=== PATIENT | male | born 1955 | race Caucasian/White ===

== ENCOUNTER 2025-05-06 10:06 | Inpatient (IN) | payer MEDICARE ==
[~2025-05-06] VITALS: Ht 180.3 cm; Wt 94.0 kg
[2025-05-06 10:29] LABS: NUCLEATED RED BLOOD CELLS 0.0 % (0.0-0.19); PLATELET COUNT (AUTO) 229.0 K/uL (130-400); RED BLOOD CELL COUNT(AUTO) 5.0 MIL/uL (4.50-6.20); RED CELL DISTRIBUTION WIDTH 12.5 % (11.0-15.5); WHITE BLOOD COUNT (AUTO) 8.8 K/uL (4.8-10.8)
--- NOTE | 2025-05-06 10:34 | NUR ---
PATIENT IN ROOM
[2025-05-06 10:36] LABS: CREATININE 1.1 mg/dL (0.5-1.3); GLOMERULAR FILTR. RATE CALC 72.0 mL/min (>90); GLUCOSE,RANDOM 179.0 mg/dL (70-105); SODIUM SERUM 139.0 mmol/L (136-145); UREA NITROGEN, BLOOD 15.0 mg/dL (7-18)
[2025-05-06] MEDS: 0.9%NACL 1000ML 1,000 ML IV SCH ×2 (10:40→13:28)
--- NOTE | 2025-05-06 10:43 | NUR ---
PER PATIENT'S REQUEST WOULD LIKE TO HOLD OFF THE PAIN MEDICATION AND THE ZOFRAN UINTIL NEED. PT IS VERBALIZING A PAIN 2/10.
--- NOTE | 2025-05-06 12:04 | HMCIMG ---
EXAM: CT Abdomen and Pelvis Without IV contrast. CLINICAL HISTORY: Left flank pain with hematuria. TECHNIQUE: Axial computed tomography images of the abdomen and pelvis without intravenous contrast. CONTRAST: No IV contrast. COMPARISON: None provided. FINDINGS: LUNG BASES: No pleural effusions. Right hemidiaphragm elevated. Mild subsegmental atelectatic bands in the basal segment of the right lower lobe. LIVER: Unremarkable. GALLBLADDER AND BILE DUCTS: The gallbladder appears within normal limits. No radiopaque gallstones. No biliary ductal dilatation. PANCREAS: Unremarkable. SPLEEN: Unremarkable. ADRENAL GLANDS: Unremarkable. KIDNEYS, URETERS, AND BLADDER: No urinary calculi. Hypodense exophytic cyst-like lesion measuring 1.8 1.2 cm in the upper pole of the right kidney. Ultrasound correlation recommended for better evaluation. Lobulated heterogeneous ill-defined soft tissue mass in the mid and lower pole of the left kidney in the anterior aspect reaching up to the hilum, measuring 9.3 5.6 7.4 cm. Internal hyperdense areas within the lesion. Lesion predominantly exophytic. No internal calcification. Mild left hydronephrosis. STOMACH AND BOWEL: Unremarkable appearance of the stomach and bowel. No bowel obstruction. No findings suggesting enteritis or colitis. APPENDIX: No evidence of acute appendicitis on CT examination. PERITONEUM: No free fluid. No free air. LYMPH NODES: No lymphadenopathy evident. REPRODUCTIVE: Mild prostatic hypertrophy, correlate clinically with laboratory parameters. VASCULATURE: No abdominal aortic aneurysm. Atherosclerotic calcification in the aorta and its branches. BONES: No aggressive appearing osseous lesion. No acute osseous pathology evident. IMPRESSION: Large heterogeneous lobulated soft tissue mass in the mid and lower pole of the left kidney measuring 9.3 5.6 7.4 cm, predominantly exophytic, with mild left hydronephrosis. Findings concerning for renal neoplasm. Further evaluation with contrast-enhanced CT / MRI is suggested. Hypodense exophytic cyst-like lesion in the upper pole of the right kidney. Ultrasound recommended for further evaluation. /[place]
--- NOTE | 2025-05-06 12:23 | ERN ---
General Chief Complaint: Flank Pain Stated Complaint: LT FLANK PAIN AND BLOOD IN URINE Time Seen by MD: 10:09 Source: patient History of Present Illness Initial Comments My patient, 69-year-old male, with past medical history of hypertension and hypertriglyceridemia, presents to the emergency department with complaint of left flank pain. He states that pain started early in the morning and it was followed by gross hematuria with passage of blood clots few hours later. He describes feeling nauseous since morning but denies any episode of vomiting. He denies dysuria, urinary frequency or passage of stone. Timing/Duration: 4-6 hours Severity: moderate Allergies: Coded Allergies: No Known Allergies (Unverified Allergy, Unknown, 05/06/25) Past Medical History Past Medical History: High Cholesterol, Hypertension Past Surgical History: Other Constitutional: (-) chills, (-) diaphoresis, (-) fever, (-) malaise, (-) weakness, (-) other documentation EENTM: (-) eye pain, (-) blurred vision, (-) tearing, (-) double vision, (-) ear pain, (-) ear discharge, (-) nose pain, (-) nose congestion, (-) throat pain, (-) Throat swelling, (-) mouth pain, (-) tooth pain, (-) mouth swelling, (-) other documentation Respiratory: (-) cough, (-) orthopnea, (-) short of breath, (-) stridor, (-) wheezing, (-) other documentation Cardiovascular: (-) chest pain, (-) edema, (-) palpitations, (-) syncope, (-) dyspnea on exertion, (-) other documentation Gastrointestinal/Abdominal: (+) nausea Genitourinary: (+) hematuria; (-) penile discharge, (-) dysuria, (-) frequency, (-) pain, (-) other documentation Musculoskeletal: (+) Flank Pain Skin: (-) laceration, (-) contusion, (-) abrasion, (-) abscess, (-) rash, (-) change in color, (-) change in hair, (-) change in nails, (-) diaphoresis, (-) dryness, (-) other documentation Neuro: (-) altered mental status, (-) headache, (-) syncope, (-) paralysis, (-) numbness, (-) seizure, (-) pre-existing deficit, (-) tremors, (-) weakness, (-) dizziness, (-) slurred speech, (-) vertigo, (-) other documentation Psych: (-) depression, (-) suicidal ideation, (-) anxiety, (-) emotional problems, (-) auditory hallucinations, (-) visual hallucinations Physical Exam General Appearance: (+) mild distress Orientation: (+) alert, (+) oriented x 3 Head/Face Trauma: No Eye: bilateral eye normal inspection Ear, Nose, Throat: (+) hearing grossly normal, (+) normal ENT inspection, (+) moist mucous membraine Neck: (+) normal inspection, (+) supple, (+) full range of motion Respiratory: (+) chest non-tender, (+) lungs clear, (+) well ventilated Heart: (+) regular, (+) no gallop Vascular: (+) no edema Gastrointestinal: (+) soft, (+) CVA tenderness Back: (+) normal inspection, (+) no vertebral tenderness, (+) CVA tenderness (L) Extremities: (+) normal range of motion, (+) non-tender, (+) normal inspection Neurologic/Psychiatric: (+) normal speech, (+) no motor defecits, (+) no sensory deficits, (+) general duty nurse II-XII nml as tested, (+) normal gait, (+) normal mood/affect Skin: (+) normal color Results Laboratory and Microbiology Lab and Micro Result Laboratory Tests Test 05/06/25 10:24 White Blood Count 8.8 K/uL (4.8-10.8) Red Blood Count 5.00 MIL/uL (4.50-6.20) Hemoglobin 15.2 g/dL (14.0-18.0) Hematocrit 43.3 % (42-54) Mean Corpuscular Volume 86.6 fL (79-99) Mean Corpuscular Hemoglobin 30.4 pg (27.0-33.0) Mean Corpuscular Hemoglobin Concent 35.1 g/dL (32.0-36.0) Red Cell Distribution Width 12.5 % (11.0-15.5) Platelet Count 229 K/uL (130-400) Mean Platelet Volume 9.8 fL (7.5-10.5) Nucleated Red Blood Cells 0.0 % (0.0-0.19) Sodium Level 139 mmol/L (136-145) Potassium Level 3.9 mmol/L (3.5-5.1) Chloride Level 102 mmol/L (101-111) Carbon Dioxide Level 26 mmol/L (21-32) Blood Urea Nitrogen 15 mg/dL (7-18) Creatinine 1.1 mg/dL (0.5-1.3) Glomerular Filtration Rate Calc 72 mL/min (>90) Random Glucose 179 mg/dL (70-105) H Total Calcium 9.0 mg/dL (8.5-10.1) Lipase 23 U/L (16-77) Labs Reviewed?: Yes EKG/XRAY/US/CT/MRI CT Scan Comment PATIENT: ZANDRA DE SANTIAGO MR#: [id number] : 1955 SEX: M AGE: 69 LOCATION: [facility] ORDER 101 STATUS: REG REPORT#: [id number] SERVICE 101 REASON: Left flank pain with hematuria ORDERING PHYSICIAN: ANICETO WALDROP MD PROCEDURE: ABD PEL WO - CT ABDOMEN/PELVIS W/O CONTRAST EXAM: CT Abdomen and Pelvis Without IV contrast. CLINICAL HISTORY: Left flank pain with hematuria. TECHNIQUE: Axial computed tomography images of the abdomen and pelvis without intravenous contrast. CONTRAST: No IV contrast. COMPARISON: None provided. FINDINGS: LUNG BASES: No pleural effusions. Right hemidiaphragm elevated. Mild subsegmental atelectatic bands in the basal segment of the right lower lobe. LIVER: Unremarkable. GALLBLADDER AND BILE DUCTS: The gallbladder appears within normal limits. No radiopaque gallstones. No biliary ductal dilatation. PANCREAS: Unremarkable. SPLEEN: Unremarkable. ADRENAL GLANDS: Unremarkable. KIDNEYS, URETERS, AND BLADDER: No urinary calculi. Hypodense exophytic cyst-like lesion measuring 1.8 1.2 cm in the upper pole of the right kidney. Ultrasound correlation recommended for better evaluation. Lobulated heterogeneous ill-defined soft tissue mass in the mid and lower pole of the left kidney in the anterior aspect reaching up to the hilum, measuring 9.3 5.6 7.4 cm. Internal hyperdense areas within the lesion. Lesion predominantly exophytic. No internal calcification. Mild left hydronephrosis. STOMACH AND BOWEL: Unremarkable appearance of the stomach and bowel. No bowel obstruction. No findings suggesting enteritis or colitis. APPENDIX: No evidence of acute appendicitis on CT examination. PERITONEUM: No free fluid. No free air. LYMPH NODES: No lymphadenopathy evident. REPRODUCTIVE: Mild prostatic hypertrophy, correlate clinically with laboratory parameters. VASCULATURE: No abdominal aortic aneurysm. Atherosclerotic calcification in the aorta and its branches. BONES: No aggressive appearing osseous lesion. No acute osseous pathology evident. IMPRESSION: Large heterogeneous lobulated soft tissue mass in the mid and lower pole of the left kidney measuring 9.3 5.6 7.4 cm, predominantly exophytic, with mild left hydronephrosis. Findings concerning for renal neoplasm. Further evaluation with contrast-enhanced CT / MRI is suggested. Hypodense exophytic cyst-like lesion in the upper pole of the right kidney. Ultrasound recommended for further evaluation. /[place] DICTATED BY: ORION WEISS Jr., MD DATE: 05/06/25 1302 ELECTRONICALLY SIGNED BY: ORION WEISS Jr., MD DATE: 05/06/[address] [facility] MDM: Differential diagnosis: Left flank pain concerning for left renal neoplasm, gross hematuria My patient, 69-year-old male, presented with complain of left flank pain associated with hematuria. * CBC, BMP, lipase levels were done. * UA profile with microscopy was done. * IV fluid bolus, ondansetron and Toradol were ordered for fluid repletion, nausea and pain relief. * CT scan of abdomen and pelvis without contrast was ordered. It showed: Large heterogeneous lobulated soft tissue mass in the mid and lower pole of the left kidney measuring 9.3 5.6 7.4 cm, predominantly exophytic, with mild left hydronephrosis. Findings concerning for renal neoplasm. Further evaluation with contrast-enhanced CT / MRI is suggested. Hypodense exophytic cyst-like lesion in the upper pole of the right kidney. Ultrasound recommended for further evaluation. * Patient is being admitted under hospitalist for further evaluation. ED Course Orders Procedure Category Date Status Time Cbc Without LAB 05/06/25 Complete Differential 10:15 Basic Metabolic Panel LAB 05/06/25 Complete 10:15 Lipase LAB 05/06/25 Complete 10:15 Ct Abdomen/Pelvis W/O CT 05/06/25 Resulted Contrast 10:15 0.9%Nacl 1000ml (Ns PHA 05/06/25 In Process 1000ml) 10:30 Ketorolac PHA 05/06/25 Complete Tromethamine 15mg/Ml 10:30 Ondansetron 4mg Inj PHA 05/06/25 Complete (Zofran 4mg Inj) 10:30 Urinalysis LAB 05/06/25 Logged W/Microscopic 10:20 Current Medications Medications (Trade) Dose Ordered Sig/Richard Route PRN Reason Start Time Stop Time Status Last Admin Dose Admin Ketorolac Tromethamine (toRADol) 15 mg ONCE ONCE IV 05/06/25 10:30 05/06/25 10:31 DC Ondansetron HCl (zoFRAN 4MG INJ) 4 mg ONCE ONCE IVP 05/06/25 10:30 05/06/25 10:31 DC Sodium Chloride 1,000 ml @ 0 mls/hr Q0M IV 05/06/25 10:30 06/05/25 10:29 05/06/25 10:40 Vital Signs Date Time Temp Pulse Resp B/P (MAP) Pulse Ox O2 Delivery O2 Flow Rate FiO2 05/06/25 11:44 97.9 64 11 136/75 97 Room Air* 0 05/06/25 10:34 97.9 67 20 131/72 99 Room Air* 0 05/06/25 10:09 97.9 67 20 131/72 99 Room Air 0 DX & DISP Disposition: Inpatient Decision to Admit Date: May 06, 2025 Decision to Admit Time: 12:23 Departure Impression: Primary Impression: Left flank mass Additional Impressions: Left flank pain, Gross hematuria, Nausea Condition: Stable Referrals: AGNES COTO MD (PCP) ANICETO WALDROP MD May 06, 2025 12:23 AMY HERNANDEZ MD May 06, 2025 12:26
--- NOTE | 2025-05-06 12:43 | NUR ---
ONCOLOGY CONSULT DR JULIAN SALEH, RESIDENT FOR DR JUNIOR, AT THE BEDSIDE
[2025-05-06 13:07] LABS: ASPARTATE AMINOTRANSFERASE 31 U/L (10-37); TOTAL PROTEIN, SERUM 7.6 g/dL (6.0-8.3)
[2025-05-06 13:12] LABS: INR 1.03 (0.85-1.15)
[2025-05-06] MEDS ORDERED: IOHEXOL-350 75 ML VIAL IV ONE (13:35)
--- NOTE | 2025-05-06 14:29 | NUR ---
REPORT GIVEN TO NURSE DEXTER
--- NOTE | 2025-05-06 15:40 | HMCIMG ---
STUDY CT Abdomen and Pelvis with and without intravenous contrast. HISTORY Hematuria and known left renal mass. TECHNIQUE Axial computed tomography images of the abdomen and pelvis were obtained before and after intravenous contrast administration. CONTRAST With and without intravenous contrast. COMPARISON CT Abdomen/Pelvis without contrast 05/06/2025 10:59 EST. FINDINGS LUNG BASES The lung bases are clear. No pleural effusions are seen. LIVER The liver demonstrates decreased attenuation consistent with hepatic steatosis. No focal enhancing hepatic lesion is identified. GALLBLADDER AND BILE DUCTS The gallbladder appears within normal limits. No radiopaque gallstones are seen. No biliary ductal dilatation is evident. PANCREAS The pancreas is normal in size and enhancement without peripancreatic inflammatory change. SPLEEN Unremarkable. ADRENAL GLANDS Unremarkable. KIDNEYS, URETERS, AND BLADDER Right kidney: A 1.2 cm exophytic cortical cyst is present at the right upper pole, without suspicious enhancement, compatible with a simple cortical cyst. No hydronephrosis, hydroureter, or calculus is seen. Left kidney: A large solidcystic mass arises from the mid and lower pole cortex of the left kidney, measuring approximately 9.9 7.7 6.7 cm, predominantly exophytic. The lesion demonstrates heterogeneous enhancement of the solid components with a nonenhancing central necrotic/cystic area. The collecting system is displaced but not infiltrated. The left renal vein is patent without filling defect, and there is no inferior vena cava thrombus. The anterior renal (Gerota) fascia and perinephric fat show no definite invasion. Mild left hydronephrosis previously described is not progressive. The urinary bladder is unremarkable. STOMACH AND BOWEL The stomach and small bowel appear unremarkable. Diffuse uncomplicated colonic diverticulosis is present without evidence of acute diverticulitis or bowel obstruction. The appendix is normal in caliber without surrounding inflammatory change. PERITONEUM No free fluid or free intraperitoneal air is evident. LYMPH NODES No pathologic abdominal or pelvic lymphadenopathy is identified. REPRODUCTIVE The prostate is enlarged, with an estimated volume of approximately 44 cc. VASCULATURE No abdominal aortic aneurysm. There is severe calcific atherosclerosis of the abdominal aorta and its major branches. Postsurgical change is present involving the left iliac vessels, without definite CT evidence of venous stent or graft. BONES AND SOFT TISSUES No acute or aggressive osseous lesion is seen. The right hemidiaphragm is elevated. No suspicious soft tissue mass is otherwise identified. IMPRESSION * Large heterogeneous predominantly exophytic solidcystic mass arising from the mid and lower pole cortex of the left kidney (?9.9 cm), with enhancing solid components and central necrosis, displacing but not invading the collecting system, with patent left renal vein and no IVC thrombus or perinephric/Gerota fascia invasion; appearance most consistent with renal cell carcinoma, at least clinical stage T2a N0 M0 on current CT, not significantly changed in extent compared with noncontrast CT of 05/06/2025. * Simple right upper pole renal cortical cyst (?1.2 cm) and benign-appearing cystic components associated with the left renal lesion, without a separate suspicious right renal mass. * Hepatic steatosis, colonic diverticulosis without diverticulitis, prostatomegaly, and severe abdominal aortic and branch-vessel atherosclerosis with postsurgical change of the left iliac vessels, without acute intra-abdominal or pelvic complication. /[place]
[2025-05-06 16:00] VITALS: BP 140/78; PULSE 63; RESP 18; TEMP 98.3; O2SAT 100
--- NOTE | 2025-05-06 18:01 | CONS ---
JULIAN SALEH Taylor 05/06/25 1801: CONSULT REFERRING PHYSICIAN: Balaji REASON FOR CONSULT: Renal mass and hematuria HISTORY HPI: This is a 69-year-old male with underlying history of hypertension maintained on outpatient treatment with valsartan, gemfibrozil, who presented to the ER for further evaluation of left-sided flank pain with episode of hematuria that started close to 1:00 a.m., patient reports that the pain woke him up and it was moderate in intensity. Patient reports passing blood clot in the urine with hematuria. The episode happened again close to 7:00 a.m. and patient reports feeling mild nausea with the symptoms. Given nonresolving symptoms, patient presented to the ER for further evaluation. Patient denies any weight loss. Denies any previous renal abnormalities. Patient does report that in his 20s, he needed IVP for renal evaluation, denies any history of renal stone or being told he had renal abnormalities. Patient denies any fevers or chills. Does report having history of hypertension and has been maintained on outpatient treatment valsartan as well as a history of hypertriglyceridemia maintained on outpatient treatment with gemfibrozil. Patient denies any history of significant smoking or exposure to heavy industrial chemicals. PMH: PAST MEDICAL HISTORY: Hypertension, hypertriglyceridemia PSH: PAST SURGICAL HISTORY: Denies history of major surgeries previously SH: PAST SOCIAL HISTORY: Denies active smoking or alcohol consumption FH: FAMILY HISTORY: Denies family history of cancer ALLERGIES: Coded Allergies: No Known Allergies (Unverified Allergy, Unknown, 05/06/25) CURRENT MEDS: Current Medications Medications (Trade) Dose Ordered Sig/Richard Route PRN Reason Start Time Stop Time Status Last Admin Sodium Chloride 1,000 ml @ 0 mls/hr Q0M IV 05/06/25 10:30 06/05/25 10:29 05/06/25 10:40 Sodium Chloride 1,000 ml @ 75 mls/hr [id number] IV 05/06/25 13:00 06/05/25 12:59 05/06/25 13:28 Famotidine (Pepcid 20mg Tab) 20 mg BID PO 05/06/25 21:00 06/05/25 20:59 Morphine Sulfate (morPHINE 2MG SYG) 2 mg Q6H PRN IVP SEVERE PAIN (7-10) 05/06/25 13:00 05/13/25 12:59 Acetaminophen (TYLenol 325MG TAB) 650 mg Q6H PRN PO MILD PAIN (1-3) 05/06/25 13:00 06/05/25 12:59 Ondansetron HCl (zoFRAN 4MG INJ) 4 mg Q6H PRN IVP NAUSEA/VOMITING 05/06/25 13:00 06/05/25 12:59 Vitamin B Complex/ Vit C/Folic Acid (Nephrovite Tablet) 1 cap DAILY PO 05/07/25 09:00 06/06/25 08:59 Gemfibrozil (gemFIBROzil 600 MG TABLET) 600 mg DAILY PO 05/07/25 09:00 06/06/25 08:59 Losartan Potassium (CozAAR 100MG TAB) 100 mg DAILYDINNER PO 05/06/25 17:00 06/05/25 16:59 Hydralazine HCl (APRESOLine 20MG INJ) 5 mg Q6H PRN IV ADMINISTER FOR SBP > 160 05/06/25 15:30 06/05/25 15:29 REVIEW OF SYSTEMS CONSTITUTIONAL: FEVER; No FEVER; SWEATS; No SWEATS; CHILLS; No CHILLS, No WEIGHT LOSS HEENT: JAUNDICE; No JAUNDICE; SORE THROAT; No SORE THROAT; SINUS PRESSURE; No SINUS PRESSURE, No VISION CHANGES RESPIRATORY: COUGH; No COUGH; CHEST PAIN; No CHEST PAIN, No SHORTNESS OF BREATH, No HEMOPTYSIS CARDIOVASCULAR: PALPATIONS; No PALPATIONS, No DYSPNEA ON EXERTION, No SYNCOPE GENITOURINARY: HEMATURIA HEMATOLOGIC/LYMPHATIC: No EASY BRUISING, No CERVICAL ADENOPATHY, No AXILLARY ADENOPATHY, No INGUINAL ADENOPATHY MUSCULOSKELETAL: BONE PAIN; No BONE PAIN, No MASS; NORMAL RANGE OF MOTION; No N ORMAL RANGE OF MOTION SKIN/BREASTS: BREAST MASS; No BREAST MASS, No NIPPLE INVERSION, No RASH NEUROLOGICAL: No WEAKNESS-EXTREMETIES, No DIPLOPIA, No NUMBNESS, No TINGLING PSYCHOLOGICAL: No SUICIDAL IDEATION PHYSICAL EXAM VITALS: Vital Signs Date Time Temp Pulse Resp B/P (MAP) Pulse Ox O2 Delivery O2 Flow Rate FiO2 05/06/25 16:00 98.2 63 18 140/78 100 Room Air 05/06/25 14:14 0 21 GENERAL: ALERT, ORIENTED, APPEARS-NO ACUTE DISTRESS EYES: SCLERAE ANICTERIC, PUPILS EQUAL/REACTIVE, EXTRAOCULAR MUSCLES INTCT ENT/NECK: ORAL MUCOSA W/O LESIONS, OROPHARYNX IS CLEAR, NECK SUPPLE W/O MASSES RESPIRATORY: LUNGS CLEAR-AUSC/PERCUS CARDIOVASCULAR: REGULAR RATE GASTROINTESTINAL: ABDOMEN IS SOFT HEMATOLOGY/LYMPHATIC: No CERVICAL ADENOPATHY, No SUPRACLAVICULR ADENOPATHY, No AXILLARY ADENOPATHY, No INGUINAL ADENOPATHY MUSCULOSKELETAL: CYANOSIS-EXTREMETIES; No CYANOSIS-EXTREMETIES, No CLUBBING, No EDEMA SKIN/BREASTS: MASSES; No MASSES, No RASH, No HIVES NEUROLOGICAL: GROSSLY INTACT PSYCHOLOGICAL: MINI MENTAL ASSMT INTACT DIAGNOSTIC STUDIES [facility] [address] [place], [place] [id number] IMAGING REPORT Signed PATIENT: ZANDRA DE SANTIAGO MR#: [id number] : 1955 SEX: M AGE: 69 LOCATION: [facility] ORDER 1302 STATUS: ADM IN REPORT#: [id number] SERVICE 1300 REASON: HEMATURIA AND LEFT RENAL MASS ORDERING PHYSICIAN: MARY CRUMP MD PROCEDURE: ABD PELWWO - CT ABDOMEN/PELVIS W/WO CONTRAS STUDY CT Abdomen and Pelvis with and without intravenous contrast. HISTORY Hematuria and known left renal mass. TECHNIQUE Axial computed tomography images of the abdomen and pelvis were obtained before and after intravenous contrast administration. CONTRAST With and without intravenous contrast. COMPARISON CT Abdomen/Pelvis without contrast 05/06/2025 10:59 EST. FINDINGS LUNG BASES The lung bases are clear. No pleural effusions are seen. LIVER The liver demonstrates decreased attenuation consistent with hepatic steatosis. No focal enhancing hepatic lesion is identified. GALLBLADDER AND BILE DUCTS The gallbladder appears within normal limits. No radiopaque gallstones are seen. No biliary ductal dilatation is evident. PANCREAS The pancreas is normal in size and enhancement without peripancreatic inflammatory change. SPLEEN Unremarkable. ADRENAL GLANDS Unremarkable. KIDNEYS, URETERS, AND BLADDER Right kidney: A 1.2 cm exophytic cortical cyst is present at the right upper pole, without suspicious enhancement, compatible with a simple cortical cyst. No hydronephrosis, hydroureter, or calculus is seen. Left kidney: A large solidcystic mass arises from the mid and lower pole cortex of the left kidney, measuring approximately 9.9 7.7 6.7 cm, predominantly exophytic. The lesion demonstrates heterogeneous enhancement of the solid components with a nonenhancing central necrotic/cystic area. The collecting system is displaced but not infiltrated. The left renal vein is patent without filling defect, and there is no inferior vena cava thrombus. The anterior renal (Gerota) fascia and perinephric fat show no definite invasion. Mild left hydronephrosis previously described is not progressive. The urinary bladder is unremarkable. STOMACH AND BOWEL The stomach and small bowel appear unremarkable. Diffuse uncomplicated colonic diverticulosis is present without evidence of acute diverticulitis or bowel obstruction. The appendix is normal in caliber without surrounding inflammatory change. PERITONEUM No free fluid or free intraperitoneal air is evident. LYMPH NODES No pathologic abdominal or pelvic lymphadenopathy is identified. REPRODUCTIVE The prostate is enlarged, with an estimated volume of approximately 44 cc. VASCULATURE No abdominal aortic aneurysm. There is severe calcific atherosclerosis of the abdominal aorta and its major branches. Postsurgical change is present involving the left iliac vessels, without definite CT evidence of venous stent or graft. BONES AND SOFT TISSUES No acute or aggressive osseous lesion is seen. The right hemidiaphragm is elevated. No suspicious soft tissue mass is otherwise identified. IMPRESSION * Large heterogeneous predominantly exophytic solidcystic mass arising from the mid and lower pole cortex of the left kidney (?9.9 cm), with enhancing solid components and central necrosis, displacing but not invading the collecting system, with patent left renal vein and no IVC thrombus or perinephric/Gerota fascia invasion; appearance most consistent with renal cell carcinoma, at least clinical stage T2a N0 M0 on current CT, not significantly changed in extent compared with noncontrast CT of 05/06/2025. * Simple right upper pole renal cortical cyst (?1.2 cm) and benign-appearing cystic components associated with the left renal lesion, without a separate suspicious right renal mass. * Hepatic steatosis, colonic diverticulosis without diverticulitis, prostatomegaly, and severe abdominal aortic and branch-vessel atherosclerosis with postsurgical change of the left iliac vessels, without acute intra-abdominal or pelvic complication. /[place] DICTATED BY: BRANDON SUNG MD DATE: 05/06/251638 ELECTRONICALLY SIGNED BY: BRANDON SUNG MD DATE: 05/06/251638 IMPRESSION ASSESSMENT: Largest heterogenous 9.9 cm left renal mass concerning for renal cell carcinoma, POA Left-sided flank pain with intermittent hematuria, times Friday, POA History of hypertension, POA History of hypertriglyceridemia, POA PLAN PLAN: Follow labs in the AM Follow up results of CT abdomen pelvis with IV contrast, Follow recommendations per Urology KETTY JUNIOR MD 05/07/25 0758: PLAN I attest that I was physically present to evaluate the patient and I reviewed and discussed the case with the Resident and agree with the Resident's findings and plans of care as documented above with modifications. Case discussed with resident on the date stated at the beginning of note. Patient was first seen and evaluated by me during this hospitalization. JULIAN SALEH May 06, 2025 18:01 KETTY JUNIOR MD May 07, 2025 07:58
[2025-05-06 18:30] VITALS: BP 154/88; PULSE 61; RESP 18; TEMP 98.5
--- NOTE | 2025-05-06 18:46 | HP ---
[facility] HISTORY AND PHYSICAL Date of Service: May 06, 2025 Time of Service: 18:46 HISTORY OF PRESENT ILLNESS: Date of service: 05/06/2025, patient was seen in ER room 15 This is a 69-year-old male with underlying history of hypertension maintained on outpatient treatment with valsartan, who presented to the ER for further evaluation of left-sided flank pain with episode of hematuria that started close to 1:00 a.m., patient reports that the pain woke him up and it was moderate in intensity. Patient reports passing blood clot in the urine with hematuria. The episode happened again close to 7:00 a.m. and patient reports feeling mild nausea with the symptoms. Given nonresolving symptoms, patient presented to the ER for further evaluation. Patient denies any weight loss. Denies any previous renal abnormalities. Patient does report that in his 20s, he needed IVP for renal evaluation, denies any history of renal stone or being told he had renal abnormalities. Patient denies any fevers or chills. Does report having history of hypertension and has been maintained on outpatient treatment valsartan as well as a history of hypertriglyceridemia maintained on outpatient treatment with gemfibrozil. Patient denies any history of significant smoking or exposure to heavy industrial chemicals. On presentation to the hospital, patient was noted to be afebrile and hemodynamically stable. Labs on presentation showed WBC count of 8800, hemoglobin of 15.2, platelet count of 835610. BMP showed sodium of 139, potassium 3.9, BUN of 15, creatinine 1.1. Urinalysis pending. Patient underwent CT abdomen pelvis without contrast which showed a large heterogeneous lobulated soft tissue mass in the mid and lower pole of the left kidney measuring 9.3 cm x 5.6 cm x 7.4 cm concerning for renal neoplasm. Patient will be admitted for further evaluation of left renal mass with hematuria. He will undergo further evaluation with contrast enhanced CT abdomen pelvis for further evaluation for concerns for renal cell carcinoma. Consultation with medical Oncology and Urology will be requested this admission. Plan of care was discussed with patient at bedside. REVIEW OF SYSTEMS CONSTITUTIONAL: Denies fevers, chills, or night sweats. No unintentional weight loss reported. NEUROLOGICAL: Denies headache, amaurosis fugax, motor weakness, sensory deficit, vertigo/spinning sensation, gait abnormalities, or tremors. ENT: No hearing loss, otalgia, otorrhea, rhinitis, rhinorrhea, hoarseness, or sore throat. CARDIOVASCULAR: Denies any exertional angina, dyspnea on exertion, orthopnea, paroxysmal nocturnal dyspnea, palpitations, life-threatening arrhythmias, claudication. PULMONARY: Denies any shortness of breath, cough, phlegm/sputum, hemoptysis, pleuritic chest pain. SLEEP: Denies morning headaches, daytime somnolence or napping. Denies difficulty falling asleep, staying asleep, waking from sleep. Denies knowledge of snoring. GASTROINTESTINAL: Denies any type of dysphagia to either liquids or solids. Denies nausea, vomiting, pyrosis, early satiety, abdominal pain, diarrhea, constipation, or changes in stool consistency or caliber. Denies coffee-ground emesis, hematemesis, hematochezia, or melanotic stools. 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 HEMATOLOGIC: Denies thrombophilia/previous clots, or coagulopathy/bleeding disorders. ONCOLOGIC: Denies personal history of malignancy. DERMATOLOGIC: Denies rashes or pruritus. PSYCHIATRIC: Denies any suicidal or homicidal ideation. Denies hallucinations. PAST MEDICAL HISTORY: Hypertension, hypertriglyceridemia PAST SURGICAL HISTORY: Denies history of major surgeries previously PAST SOCIAL HISTORY: Denies active smoking or alcohol consumption FAMILY HISTORY: Denies family history of cancer Allergies: No known drug allergies Home medications: Valsartan 320 mg daily, gemfibrozil once a day Coded Allergies: No Known Allergies (Unverified Allergy, Unknown, 05/06/25) PHYSICAL EXAM GENERAL APPEARANCE: The patient is awake, alert, and oriented, in no acute cardiopulmonary distress. NEUROLOGICAL: Cranial nerves II-XII grossly intact. Motor is 5/5 in bilateral upper and lower extremities proximal to distal. No sensory deficits. HEENT: Face is symmetric. Pupils are equal and reactive. Extraocular movements are intact. NECK: Supple. No JVD. No thyromegaly. No submental, submandibular, pre- /postauricular, occipital or supraclavicular lymphadenopathy. CHEST: Normal chest expansion. No Telemetry. LUNGS: Absence of any rales, rhonchi or any wheezing. CARDIOVASCULAR: Regular. S1 and S2 normal. No appreciable rubs, murmurs or gallops. ABDOMEN: Soft, nondistended. Tenderness to palpation of the left flank with a palpable mass noted : Deferred. No Macias. EXTREMITIES: Non-edematous and not cyanotic. No clubbing. Good capillary refill. SKIN: No skin breakdown. Vital Sign (Last 24 Hours) 05/06/25 05/06/25 14:14 16:00 Temp 98.2 Pulse 63 Resp 18 B/P (MAP) 140/78 Pulse Ox 100 O2 Delivery Room Air O2 Flow Rate 0 FiO2 21 LABS: Laboratory: Test 05/06/25 14:09 05/06/25 10:24 Range/Units Hemoglobin 14.3 14.0-18.0 g/dL Hematocrit 41.0 L 42-54 % White Blood Count 8.8 4.8-10.8 K/uL Red Blood Count 5.00 4.50-6.20 MIL/uL Mean Corpuscular Volume 86.6 79-99 fL Mean Corpuscular Hemoglobin 30.4 27.0-33.0 pg Mean Corpuscular Hemoglobin Concent 35.1 32.0-36.0 g/dL Red Cell Distribution Width 12.5 11.0-15.5 % Platelet Count 229 130-400 K/uL Mean Platelet Volume 9.8 7.5-10.5 fL Nucleated Red Blood Cells 0.0 0.0-0.19 % Erythrocyte Sedimentation Rate 10 0-20 MM/HR Prothrombin Time 10.9 9.6-11.6 SEC Prothromb Time International Ratio 1.03 0.85-1.15 Activated Partial Thromboplast Time 25.4 L 26.3-35.5 SEC Sodium Level 139 136-145 mmol/L Potassium Level 3.9 3.5-5.1 mmol/L Chloride Level 102 101-111 mmol/L Carbon Dioxide Level 26 21-32 mmol/L Blood Urea Nitrogen 15 7-18 mg/dL Creatinine 1.1 0.5-1.3 mg/dL Glomerular Filtration Rate Calc 72 >90 mL/min Random Glucose 179 H 70-105 mg/dL Total Calcium 9.0 8.5-10.1 mg/dL Total Bilirubin 0.9 0.2-1.0 mg/dL Direct Bilirubin 0.2 0.0-0.3 mg/dL Aspartate Amino Transf (AST/SGOT) 31 10-37 U/L Alanine Aminotransferase (ALT/SGPT) 33 12-78 U/L Alkaline Phosphatase 101 50-136 U/L C-Reactive Protein, Quantitative < 0.50 L 0.5-3.0 mg/L Total Protein 7.6 6.0-8.3 g/dL Albumin 4.0 3.5-5.0 g/dL Lipase 23 16-77 U/L Procalcitonin < 0.05 L 0.05-0.5 ng/mL Current Medications Medications (Trade) Dose Ordered Sig/Richard Route PRN Reason Start Time Stop Time Status Last Admin Dose Admin Acetaminophen (TYLenol 325MG TAB) 650 mg Q6H PRN PO MILD PAIN (1-3) 05/06/25 13:00 06/05/25 12:59 Famotidine (Pepcid 20mg Tab) 20 mg BID PO 05/06/25 21:00 06/05/25 20:59 Gemfibrozil (gemFIBROzil 600 MG TABLET) 600 mg DAILY PO 05/07/25 09:00 06/06/25 08:59 Hydralazine HCl (APRESOLine 20MG INJ) 5 mg Q6H PRN IV ADMINISTER FOR SBP > 160 05/06/25 15:30 06/05/25 15:29 Losartan Potassium (CozAAR 100MG TAB) 100 mg DAILYDINNER PO 05/06/25 17:00 06/05/25 16:59 Morphine Sulfate (morPHINE 2MG SYG) 2 mg Q6H PRN IVP SEVERE PAIN (7-10) 05/06/25 13:00 05/13/25 12:59 Ondansetron HCl (zoFRAN 4MG INJ) 4 mg Q6H PRN IVP NAUSEA/VOMITING 05/06/25 13:00 06/05/25 12:59 Sodium Chloride 1,000 ml @ 0 mls/hr Q0M IV 05/06/25 10:30 06/05/25 10:29 05/06/25 10:40 1,000 MLS/HR Sodium Chloride 1,000 ml @ 75 mls/hr [id number] IV 05/06/25 13:00 06/05/25 12:59 05/06/25 13:28 75 MLS/HR Vitamin B Complex/ Vit C/Folic Acid (Nephrovite Tablet) 1 cap DAILY PO 05/07/25 09:00 06/06/25 08:59 DIAGNOSTICS / RADIOLOGY: SERVICE 1300 REASON: HEMATURIA AND LEFT RENAL MASS ORDERING PHYSICIAN: ADRIAN SCHAFER MD PROCEDURE: ABD PELWWO - CT ABDOMEN/PELVIS W/WO CONTRAS STUDY CT Abdomen and Pelvis with and without intravenous contrast. HISTORY Hematuria and known left renal mass. TECHNIQUE Axial computed tomography images of the abdomen and pelvis were obtained before and after intravenous contrast administration. CONTRAST With and without intravenous contrast. COMPARISON CT Abdomen/Pelvis without contrast 05/06/2025 10:59 EST. FINDINGS LUNG BASES The lung bases are clear. No pleural effusions are seen. LIVER The liver demonstrates decreased attenuation consistent with hepatic steatosis. No focal enhancing hepatic lesion is identified. GALLBLADDER AND BILE DUCTS The gallbladder appears within normal limits. No radiopaque gallstones are seen. No biliary ductal dilatation is evident. PANCREAS The pancreas is normal in size and enhancement without peripancreatic inflammatory change. SPLEEN Unremarkable. ADRENAL GLANDS Unremarkable. KIDNEYS, URETERS, AND BLADDER Right kidney: A 1.2 cm exophytic cortical cyst is present at the right upper pole, without suspicious enhancement, compatible with a simple cortical cyst. No hydronephrosis, hydroureter, or calculus is seen. Left kidney: A large solidcystic mass arises from the mid and lower pole cortex of the left kidney, measuring approximately 9.9 7.7 6.7 cm, predominantly exophytic. The lesion demonstrates heterogeneous enhancement of the solid components with a nonenhancing central necrotic/cystic area. The collecting system is displaced but not infiltrated. The left renal vein is patent without filling defect, and there is no inferior vena cava thrombus. The anterior renal (Gerota) fascia and perinephric fat show no definite invasion. Mild left hydronephrosis previously described is not progressive. The urinary bladder is unremarkable. STOMACH AND BOWEL The stomach and small bowel appear unremarkable. Diffuse uncomplicated colonic diverticulosis is present without evidence of acute diverticulitis or bowel obstruction. The appendix is normal in caliber without surrounding inflammatory change. PERITONEUM No free fluid or free intraperitoneal air is evident. LYMPH NODES No pathologic abdominal or pelvic lymphadenopathy is identified. REPRODUCTIVE The prostate is enlarged, with an estimated volume of approximately 44 cc. VASCULATURE No abdominal aortic aneurysm. There is severe calcific atherosclerosis of the abdominal aorta and its major branches. Postsurgical change is present involving the left iliac vessels, without definite CT evidence of venous stent or graft. BONES AND SOFT TISSUES No acute or aggressive osseous lesion is seen. The right hemidiaphragm is elevated. No suspicious soft tissue mass is otherwise identified. IMPRESSION * Large heterogeneous predominantly exophytic solidcystic mass arising from the mid and lower pole cortex of the left kidney (?9.9 cm), with enhancing solid components and central necrosis, displacing but not invading the collecting system, with patent left renal vein and no IVC thrombus or perinephric/Gerota fascia invasion; appearance most consistent with renal cell carcinoma, at least clinical stage T2a N0 M0 on current CT, not significantly changed in extent compared with noncontrast CT of 05/06/2025. * Simple right upper pole renal cortical cyst (?1.2 cm) and benign-appearing cystic components associated with the left renal lesion, without a separate suspicious right renal mass. * Hepatic steatosis, colonic diverticulosis without diverticulitis, prostatomegaly, and severe abdominal aortic and branch-vessel atherosclerosis with postsurgical change of the left iliac vessels, without acute intra-abdominal or pelvic complication. /[place] DICTATED BY: BRANDON SUNG MD DATE: 05/06/251638 ELECTRONICALLY SIGNED BY: BRANDON SUNG MD DATE: 05/06/251638 ASSESSMENT: Large heterogenous 9.9 cm left renal mass concerning for renal cell carcinoma, POA Left-sided flank pain with intermittent hematuria, times Friday, POA History of hypertension, POA History of hypertriglyceridemia, POA PLAN: Patient will be admitted to medical-surgical floor under telemetry monitoring We will monitor H&H closely tonight We will follow up results of CT abdomen pelvis with IV contrast, concern remains for renal cell carcinoma involving the left kidney causing hematuria Consultation with Urology will be requested with Dr. Zavala Consultation with medical oncology with Dr. Simmons be requested Patient to resume his home dose of valsartan 320 mg daily and gemfibrozil once a day All labs will be repeated in the morning We will await input from the consultants, and anticipate hospitalization for at least 24-48 hours We will keep patient on DVT prophylaxis with SCDs and GI prophylaxis with Pepcid Plan of care was discussed with patient at bedside Date of service: 05/06/2025 Adrian Schafer MD Advanced Care Planning: Which of the following were discussed: Hospice care: Yes __ No _X_ Therapeutic options: Yes _X_ No __ Advance directives: Yes _X_ No __ Other discussions: Discussed with who?: Patient Voluntary nature of this service was explained to the patient? Yes _x_ No __ Amount of time spent: 20 minutes ADRIAN SCHAFER MD May 06, 2025 18:46
[2025-05-06] MEDS: FAMOTIDINE 20MG TAB PO SCH (20:48)
[2025-05-06 22:00] VITALS: O2SAT 95
[2025-05-06 23:50] VITALS: BP 131/78; PULSE 51; RESP 20; TEMP 98.2
[2025-05-07] VITALS (7 sets, daily range): BP systolic 128–140; BP diastolic 75–90; PULSE 53–75; RESP 18; TEMP 97.8–98.7; O2SAT 96
[2025-05-07 04:18] LABS: APPEARANCE,URINE CLOUDY (CLEAR); GLUCOSE, URINE (UA) NEGATIVE (NEGATIVE); LEUKOCYTE ESTERASE ,URINE NEGATIVE Leu/uL (NEGATIVE); NITRATE,URINE NEGATIVE (NEGATIVE); OCCULT BLOOD,URINE LARGE (NEGATIVE)
[2025-05-07] MEDS ORDERED: IOHEXOL 350 MG/ML 100ML INFUS..BTL IV ONE (07:39)
--- NOTE | 2025-05-07 08:01 | PN ---
This is a 69-year-old male with underlying history of hypertension maintained on outpatient treatment with valsartan, gemfibrozil, who presented to the ER for further evaluation of left-sided flank pain with episode of hematuria that started close to 1:00 a.m., patient reports that the pain woke him up and it was moderate in intensity. Patient reports passing blood clot in the urine with hematuria. The episode happened again close to 7:00 a.m. and patient reports feeling mild nausea with the symptoms. Given nonresolving symptoms, patient presented to the ER for further evaluation. Patient denies any weight loss. Denies any previous renal abnormalities. Patient does report that in his 20s, he needed IVP for renal evaluation, denies any history of renal stone or being told he had renal abnormalities. Patient denies any fevers or chills. Does report having history of hypertension and has been maintained on outpatient treatment valsartan as well as a history of hypertriglyceridemia maintained on outpatient treatment with gemfibrozil. Patient denies any history of significant smoking or exposure to heavy industrial chemicals. CT scan of the abdomen pelvis showing left kidney mass 9.9 cm not invading the collecting system. The left renal vein patent with no thrombus. REVIEW OF SYSTEMS CONSTITUTIONAL: FEVER; No FEVER; SWEATS; No SWEATS; CHILLS; No CHILLS, No WEIGHT LOSS HEENT: JAUNDICE; No JAUNDICE; SORE THROAT; No SORE THROAT; SINUS PRESSURE; No S INUS PRESSURE, No VISION CHANGES RESPIRATORY: COUGH; No COUGH; CHEST PAIN; No CHEST PAIN, No SHORTNESS OF BREATH, No HEMOPTYSIS CARDIOVASCULAR: PALPATIONS; No PALPATIONS, No DYSPNEA ON EXERTION, No SYNCOPE GENITOURINARY: HEMATURIA HEMATOLOGIC/LYMPHATIC: No EASY BRUISING, No CERVICAL ADENOPATHY, No AXILLARY ADENOPATHY, No INGUINAL ADENOPATHY MUSCULOSKELETAL: BONE PAIN; No BONE PAIN, No MASS; NORMAL RANGE OF MOTION; No N ORMAL RANGE OF MOTION SKIN/BREASTS: BREAST MASS; No BREAST MASS, No NIPPLE INVERSION, No RASH NEUROLOGICAL: No WEAKNESS-EXTREMETIES, No DIPLOPIA, No NUMBNESS, No TINGLING PSYCHOLOGICAL: No SUICIDAL IDEATION PHYSICAL EXAM VITALS: Vital Signs Date Time Temp Pulse Resp B/P (MAP) Pulse Ox O2 Delivery O2 Flow Rate FiO2 05/06/25 16:00 98.2 63 18 140/78 100 Room Air 05/06/25 14:14 0 21 GENERAL: ALERT, ORIENTED, APPEARS-NO ACUTE DISTRESS EYES: SCLERAE ANICTERIC, PUPILS EQUAL/REACTIVE, EXTRAOCULAR MUSCLES INTCT ENT/NECK: ORAL MUCOSA W/O LESIONS, OROPHARYNX IS CLEAR, NECK SUPPLE W/O MASSES RESPIRATORY: LUNGS CLEAR-AUSC/PERCUS CARDIOVASCULAR: REGULAR RATE GASTROINTESTINAL: ABDOMEN IS SOFT HEMATOLOGY/LYMPHATIC: No CERVICAL ADENOPATHY, No SUPRACLAVICULR ADENOPATHY, No AXILLARY ADENOPATHY, No INGUINAL ADENOPATHY MUSCULOSKELETAL: CYANOSIS-EXTREMETIES; No CYANOSIS-EXTREMETIES, No CLUBBING, No EDEMA SKIN/BREASTS: MASSES; No MASSES, No RASH, No HIVES NEUROLOGICAL: GROSSLY INTACT PSYCHOLOGICAL: MINI MENTAL ASSMT INTACT IMPRESSION Largest heterogenous 9.9 cm left renal mass concerning for renal cell carcinoma, POA Left-sided flank pain with intermittent hematuria, times Friday, POA History of hypertension, POA History of hypertriglyceridemia, POA Plan 1. CT scan of the abdomen pelvis showing left kidney mass 9.9 cm not invading the collecting system. The left renal vein patent with no thrombus. It looks like clear-cell carcinoma. There is plan for CT scan of the chest and bone scan to be done to rule out any metastatic disease. After patient doing the imaging study he could be discharged to follow-up with us as outpatient. If the patient to have metastatic disease in this patient will be started on palliative chemo. If there is no metastatic disease then this patient could be sent to surgery for radical nephrectomy 2. I have long discussion with the patient regarding the plan of care. I answer all question and concern and I spent more than 35 minutes. No need for biopsy. This patient will need surgery to be done. Urology were consulted. 3. No need for blood product transfusion Vitals/Labs Vital Signs Date Time Temp Pulse Resp B/P (MAP) Pulse Ox O2 Delivery O2 Flow Rate FiO2 05/07/25 07:55 97.9 60 18 131/76 96 Room Air 05/06/25 16:00 0 21 Laboratory Tests 05/06/25 10:24 05/06/25 14:09 05/06/25 20:15 05/07/25 02:08 Medications Current Medications Sodium Chloride 1,000 ml @ 0 mls/hr Q0M IV Last administered on 05/06/25at 10:40; Start 05/06/25 at 10:30; Stop 05/07/25 at 00:44; Status DC Ketorolac Tromethamine 15 mg ONCE ONCE IV; Start 05/06/25 at 10:30; Stop 05/06/25 at 10:31; Status DC Ondansetron HCl 4 mg ONCE ONCE IVP; Start 05/06/25 at 10:30; Stop 05/06/25 at 10:31; Status DC Sodium Chloride 1,000 ml @ 75 mls/hr [id number] IV Last administered on 05/07/25at 06:40; Start 05/06/25 at 13:00; Stop 06/05/25 at 12:59 Famotidine 20 mg BID PO Last administered on 05/06/25at 20:48; Start 05/06/25 at 21:00; Stop 06/05/25 at 20:59 Morphine Sulfate 2 mg Q6H PRN IVP; Start 05/06/25 at 13:00; Stop 05/13/25 at 12:59 Acetaminophen 650 mg Q6H PRN PO; Start 05/06/25 at 13:00; Stop 06/05/25 at 12:59 Ondansetron HCl 4 mg Q6H PRN IVP; Start 05/06/25 at 13:00; Stop 06/05/25 at 12:59 Vitamin B Complex/ Vit C/Folic Acid 1 cap DAILY PO; Start 05/07/25 at 09:00; Stop 06/06/25 at 08:59 Iohexol 75 ml STK-MED ONCE IV; Start 05/06/25 at 13:35; Stop 05/06/25 at 13:36; Status DC Gemfibrozil 600 mg DAILY PO; Start 05/07/25 at 09:00; Stop 06/06/25 at 08:59 Losartan Potassium 100 mg DAILYDINNER PO; Start 05/06/25 at 17:00; Stop 06/05/25 at 16:59 Hydralazine HCl 5 mg Q6H PRN IV; Start 05/06/25 at 15:30; Stop 05/06/25 at 22:36; Status DC Hydralazine HCl 5 mg Q6H PRN IV; Start 05/06/25 at 22:30; Stop 06/05/25 at 22:29 Iohexol 35,000 mg STK-MED ONCE IV; Start 05/07/25 at 07:39; Stop 05/07/25 at 07:39; Status DC KETTY JUNIOR MD May 07, 2025 08:01
[2025-05-07] MEDS: Vitamin B Complex/Vit C/Folic Acid PO SCH (08:10)
--- NOTE | 2025-05-07 09:18 | PN ---
[facility] PROGRESS NOTE Date of Service: May 07, 2025 Time of Service: 09:16 SUBJECTIVE: Follow up visit for a 49-year-old male admitted to the hospital for left renal mass. Consultation with Urology has been requested pending evaluation. Oncology has also been requested following recommendations. Morning labs reviewed. REVIEW OF SYSTEMS CONSTITUTIONAL: Denies fevers, chills, or night sweats. No unintentional weight loss reported. NEUROLOGICAL: Denies headache, amaurosis fugax, motor weakness, sensory deficit, vertigo/spinning sensation, gait abnormalities, or tremors. ENT: No hearing loss, otalgia, otorrhea, rhinitis, rhinorrhea, hoarseness, or sore throat. CARDIOVASCULAR: Denies any exertional angina, dyspnea on exertion, orthopnea, paroxysmal nocturnal dyspnea, palpitations, life-threatening arrhythmias, claudication. PULMONARY: Denies any shortness of breath, cough, phlegm/sputum, hemoptysis, pleuritic chest pain. SLEEP: Denies morning headaches, daytime somnolence or napping. Denies difficulty falling asleep, staying asleep, waking from sleep. Denies knowledge of snoring. GASTROINTESTINAL: Denies any type of dysphagia to either liquids or solids. Denies nausea, vomiting, pyrosis, early satiety, abdominal pain, diarrhea, constipation, or changes in stool consistency or caliber. Denies coffee-ground emesis, hematemesis, hematochezia, or melanotic stools. 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 HEMATOLOGIC: Denies thrombophilia/previous clots, or coagulopathy/bleeding disorders. ONCOLOGIC: Denies personal history of malignancy. DERMATOLOGIC: Denies rashes or pruritus. PSYCHIATRIC: Denies any suicidal or homicidal ideation. Denies hallucinations. PHYSICAL EXAM GENERAL APPEARANCE: The patient is awake, alert, and oriented, in no acute cardiopulmonary distress. NEUROLOGICAL: Cranial nerves II-XII grossly intact. Motor is 5/5 in bilateral upper and lower extremities proximal to distal. No sensory deficits. HEENT: Face is symmetric. Pupils are equal and reactive. Extraocular movements are intact. NECK: Supple. No JVD. No thyromegaly. No submental, submandibular, pre- /postauricular, occipital or supraclavicular lymphadenopathy. CHEST: Normal chest expansion. No Telemetry. LUNGS: Absence of any rales, rhonchi or any wheezing. CARDIOVASCULAR: Regular. S1 and S2 normal. No appreciable rubs, murmurs or gallops. ABDOMEN: Soft, nondistended. Tenderness to palpation of the left flank with a palpable mass noted : Deferred. No Macias. EXTREMITIES: Non-edematous and not cyanotic. No clubbing. Good capillary refill. SKIN: No skin breakdown. Vital Signs (last 8hr) Date Time Temp Pulse Resp B/P (MAP) Pulse Ox O2 Delivery O2 Flow Rate FiO2 05/07/25 08:11 96 Room Air* 0 21 05/07/25 07:55 97.9 60 18 131/76 96 Room Air 05/07/25 04:00 98.8 53 18 128/76 96 Room Air LABS: Laboratory: Test 05/07/25 04:00 05/07/25 02:08 05/06/25 10:24 Range/Units Urine Color LIGHT-ORANGE YELLOW Urine Appearance CLOUDY H CLEAR Urine pH 6.0 5.0-8.0 Urine Specific [place] 1.015 1.001-1.031 Urine Protein 10 H NEGATIVE mg/dL Urine Glucose (UA) NEGATIVE NEGATIVE mg/dL Urine Ketones NEGATIVE NEGATIVE mg/dL Urine Occult Blood LARGE H NEGATIVE Urine Nitrate NEGATIVE NEGATIVE Urine Bilirubin NEGATIVE NEGATIVE mg/dL Urine Urobilinogen 0.2 0.2-1.0 mg/dL Urine Leukocyte Esterase NEGATIVE NEGATIVE Yolette/uL Urine RBC TNTC H 0-1 /HPF Urine WBC 0-1 0-1 /HPF Urine Bacteria RARE None Seen /HPF Hemoglobin 13.0 L 14.0-18.0 g/dL Hematocrit 36.1 L 42-54 % White Blood Count 8.8 4.8-10.8 K/uL Red Blood Count 5.00 4.50-6.20 MIL/uL Mean Corpuscular Volume 86.6 79-99 fL Mean Corpuscular Hemoglobin 30.4 27.0-33.0 pg Mean Corpuscular Hemoglobin Concent 35.1 32.0-36.0 g/dL Red Cell Distribution Width 12.5 11.0-15.5 % Platelet Count 229 130-400 K/uL Mean Platelet Volume 9.8 7.5-10.5 fL Nucleated Red Blood Cells 0.0 0.0-0.19 % Erythrocyte Sedimentation Rate 10 0-20 MM/HR Prothrombin Time 10.9 9.6-11.6 SEC Prothromb Time International Ratio 1.03 0.85-1.15 Activated Partial Thromboplast Time 25.4 L 26.3-35.5 SEC Sodium Level 139 136-145 mmol/L Potassium Level 3.9 3.5-5.1 mmol/L Chloride Level 102 101-111 mmol/L Carbon Dioxide Level 26 21-32 mmol/L Blood Urea Nitrogen 15 7-18 mg/dL Creatinine 1.1 0.5-1.3 mg/dL Glomerular Filtration Rate Calc 72 >90 mL/min Random Glucose 179 H 70-105 mg/dL Total Calcium 9.0 8.5-10.1 mg/dL Total Bilirubin 0.9 0.2-1.0 mg/dL Direct Bilirubin 0.2 0.0-0.3 mg/dL Aspartate Amino Transf (AST/SGOT) 31 10-37 U/L Alanine Aminotransferase (ALT/SGPT) 33 12-78 U/L Alkaline Phosphatase 101 50-136 U/L C-Reactive Protein, Quantitative < 0.50 L 0.5-3.0 mg/L Total Protein 7.6 6.0-8.3 g/dL Albumin 4.0 3.5-5.0 g/dL Lipase 23 16-77 U/L Procalcitonin < 0.05 L 0.05-0.5 ng/mL Current Medications Medications (Trade) Dose Ordered Sig/Richard Route PRN Reason Start Time Stop Time Status Last Admin Dose Admin Acetaminophen (TYLenol 325MG TAB) 650 mg Q6H PRN PO MILD PAIN (1-3) 05/06/25 13:00 06/05/25 12:59 Famotidine (Pepcid 20mg Tab) 20 mg BID PO 05/06/25 21:00 06/05/25 20:59 05/06/25 20:48 20 MG Gemfibrozil (gemFIBROzil 600 MG TABLET) 600 mg DAILY PO 05/07/25 09:00 06/06/25 08:59 Home Med (Home Medication) VALSARTAN 320MG TAB DAILYDINNER PO 05/07/25 17:00 06/06/25 16:59 Hydralazine HCl (APRESOLine 20MG INJ) 5 mg Q6H PRN IV ADMINISTER FOR SBP > 160 05/06/25 15:30 05/06/25 22:36 DC Hydralazine HCl (APRESOLine 20MG INJ) 5 mg Q6H PRN IV ADMINISTER FOR SBP > 160 05/06/25 22:30 06/05/25 22:29 Losartan Potassium (CozAAR 100MG TAB) 100 mg DAILYDINNER PO 05/06/25 17:00 05/07/25 08:00 DC Morphine Sulfate (morPHINE 2MG SYG) 2 mg Q6H PRN IVP SEVERE PAIN (7-10) 05/06/25 13:00 05/13/25 12:59 Ondansetron HCl (zoFRAN 4MG INJ) 4 mg Q6H PRN IVP NAUSEA/VOMITING 05/06/25 13:00 06/05/25 12:59 Sodium Chloride 1,000 ml @ 0 mls/hr Q0M IV 05/06/25 10:30 05/07/25 00:44 DC 05/06/25 10:40 1,000 MLS/HR Sodium Chloride 1,000 ml @ 75 mls/hr [id number] IV 05/06/25 13:00 06/05/25 12:59 05/07/25 06:40 75 MLS/HR Vitamin B Complex/ Vit C/Folic Acid (Nephrovite Tablet) 1 cap DAILY PO 05/07/25 09:00 06/06/25 08:59 DIAGNOSTICS / RADIOLOGY: [ ] ASSESSMENT: Large heterogenous 9.9 cm left renal mass concerning for renal cell carcinoma, POA Left-sided flank pain with intermittent hematuria, times Friday, POA History of hypertension, POA History of hypertriglyceridemia, POA PLAN: Continue admission to medical-surgical floor under telemetry monitoring We will monitor H&H closely a Consultation with Urology requested with Dr. Zavala; follow up recommendations Consultation with medical oncology with Dr. Simmons requested; follow recommendations Patient to resume his home dose of valsartan 320 mg daily and gemfibrozil once a day All labs will be repeated in the morning We will keep patient on DVT prophylaxis with SCDs and GI prophylaxis with Pepcid P.r.n. medications for fever, pain, nausea, constipation Further orders per hospital course DARLIN SUÁREZ PAC May 07, 2025 09:18
[2025-05-07] MEDS ORDERED: IOHEXOL-350 50ML VIAL IV ONE (10:12)
--- NOTE | 2025-05-07 14:33 | NUR ---
DCP: INITIAL ASSESSMENT Patient lives with spouse, Alyson Ch. He has no home services. Patient has BPM and glucometer at home. He does not use insulin. Patient is able to complete ADLs and drives. PCP is Dr. Kj Morales. Pharmacy is [facility] located on [facility] in [place]. Patient voiced no safety concerns regarding returning home and states he has no difficulty with housing or buying food. DCP is home.
[2025-05-08] VITALS (9 sets, daily range): BP systolic 124–138; BP diastolic 78–90; PULSE 51–58; RESP 16–18; TEMP 97.8–98.5; O2SAT 97–99
--- NOTE | 2025-05-08 03:47 | HMCIMG ---
EXAM: CT Chest With and Without Intravenous Contrast. CLINICAL HISTORY: Left kidney mass. TECHNIQUE: Axial computed tomography images of the chest with and without intravenous contrast. Dose reduction technique was used including one or more of the following: automated exposure control, adjustment of mA and kV according to patient size, and/or iterative reconstruction. Total exam DLP 819. Total CTDI volume 20.8. CONTRAST: With and Without. COMPARISON: None provided. FINDINGS: LUNGS: The right hemidiaphragm is elevated with compressive atelectasis of the right lower lobe. There are no lung nodules or mass. No evidence of pulmonary embolism. PLEURAL SPACES: No pleural effusion. No pneumothorax. HEART AND MEDIASTINUM: No cardiomegaly. No significant pericardial effusion. There are coronary arterial calcifications. There is atheromatous calcification of the thoracic aortic arch. There is a 5 mm sized hypodense nodule in the left lobe of the thyroid gland. Small focus of calcification is present in the left lobe of the thyroid gland. There is another 1.3 x 0.7 cm sized nodule at the junction of the isthmus and left lobe of the thyroid. The remainder of the thyroid gland appears unremarkable. LYMPH NODES: No thoracic adenopathy. CHEST WALL AND UPPER ABDOMEN: The right hemidiaphragm is elevated. Hyperdense contents are present in the gallbladder lumen, which may represent vicarious contrast excretion from a prior intravenous contrast administered on May 06, 2025. A small sized hiatal hernia is present. The chest wall is unremarkable. BONES: There are degenerative changes in the spine. No lytic or sclerotic bone lesions. IMPRESSION: 1. No evidence of pulmonary embolism. No lung nodules or mass. 2. No thoracic adenopathy. 3. Elevated right hemidiaphragm, which may represent phrenic nerve palsy. 4. Heterogeneous appearing nodular thyroid. Recommend non-emergent sonographic correlation. /[place]
[2025-05-08 05:52] LABS: IMMATURE GRANULOCYTE ABSOLUTE 0.02 K/uL (0-1); NUCLEATED RED BLOOD CELLS 0.0 % (0.0-0.19); PLATELET COUNT (AUTO) 227 K/uL (130-400); RED BLOOD CELL COUNT(AUTO) 4.76 MIL/uL (4.50-6.20); RED CELL DISTRIBUTION WIDTH 12.3 % (11.0-15.5); WHITE BLOOD COUNT (AUTO) 7.0 K/uL (4.8-10.8)
[2025-05-08 06:23] LABS: CREATININE 0.7 mg/dL (0.5-1.3); GLOMERULAR FILTR. RATE CALC 99.0 mL/min (>90); GLUCOSE,RANDOM 121.0 mg/dL (70-105); SODIUM SERUM 140.0 mmol/L (136-145); UREA NITROGEN, BLOOD 11.0 mg/dL (7-18)
--- NOTE | 2025-05-08 10:51 | PN ---
[facility] PROGRESS NOTE Date of Service: May 08, 2025 Time of Service: 10:49 SUBJECTIVE: Follow up visit for a 49-year-old male admitted to the hospital for left renal mass. Consultation with Urology has been requested pending evaluation. Oncology has also been requested following recommendations. Morning labs reviewed. 05/08/2025: Patient continues to be followed closely by Urology, and Oncology. Abdominal MRI performed yesterday, report pending. Bone scan has been requested, pending. Morning labs reviewed. REVIEW OF SYSTEMS CONSTITUTIONAL: Denies fevers, chills, or night sweats. No unintentional weight loss reported. NEUROLOGICAL: Denies headache, amaurosis fugax, motor weakness, sensory deficit, vertigo/spinning sensation, gait abnormalities, or tremors. ENT: No hearing loss, otalgia, otorrhea, rhinitis, rhinorrhea, hoarseness, or sore throat. CARDIOVASCULAR: Denies any exertional angina, dyspnea on exertion, orthopnea, paroxysmal nocturnal dyspnea, palpitations, life-threatening arrhythmias, claudication. PULMONARY: Denies any shortness of breath, cough, phlegm/sputum, hemoptysis, pleuritic chest pain. SLEEP: Denies morning headaches, daytime somnolence or napping. Denies difficulty falling asleep, staying asleep, waking from sleep. Denies knowledge of snoring. GASTROINTESTINAL: Denies any type of dysphagia to either liquids or solids. Denies nausea, vomiting, pyrosis, early satiety, abdominal pain, diarrhea, constipation, or changes in stool consistency or caliber. Denies coffee-ground emesis, hematemesis, hematochezia, or melanotic stools. 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 HEMATOLOGIC: Denies thrombophilia/previous clots, or coagulopathy/bleeding disorders. ONCOLOGIC: Denies personal history of malignancy. DERMATOLOGIC: Denies rashes or pruritus. PSYCHIATRIC: Denies any suicidal or homicidal ideation. Denies hallucinations. PHYSICAL EXAM GENERAL APPEARANCE: The patient is awake, alert, and oriented, in no acute cardiopulmonary distress. NEUROLOGICAL: Cranial nerves II-XII grossly intact. Motor is 5/5 in bilateral upper and lower extremities proximal to distal. No sensory deficits. HEENT: Face is symmetric. Pupils are equal and reactive. Extraocular movements are intact. NECK: Supple. No JVD. No thyromegaly. No submental, submandibular, pre- /postauricular, occipital or supraclavicular lymphadenopathy. CHEST: Normal chest expansion. No Telemetry. LUNGS: Absence of any rales, rhonchi or any wheezing. CARDIOVASCULAR: Regular. S1 and S2 normal. No appreciable rubs, murmurs or gallops. ABDOMEN: Soft, nondistended. Tenderness to palpation of the left flank with a palpable mass noted : Deferred. No Macias. EXTREMITIES: Non-edematous and not cyanotic. No clubbing. Good capillary refill. SKIN: No skin breakdown. Vital Signs (last 8hr) Date Time Temp Pulse Resp B/P (MAP) Pulse Ox O2 Delivery O2 Flow Rate FiO2 05/08/25 09:05 97 Room Air* 0 21 05/08/25 08:00 98.1 56 16 131/82 97 Room Air 05/08/25 04:16 97.9 53 18 138/87 96 Room Air LABS: Laboratory: Test 05/08/25 04:46 05/07/25 04:00 Range/Units White Blood Count 7.0 4.8-10.8 K/uL Red Blood Count 4.76 4.50-6.20 MIL/uL Hemoglobin 14.3 14.0-18.0 g/dL Hematocrit 41.6 L 42-54 % Mean Corpuscular Volume 87.4 79-99 fL Mean Corpuscular Hemoglobin 30.0 27.0-33.0 pg Mean Corpuscular Hemoglobin Concent 34.4 32.0-36.0 g/dL Red Cell Distribution Width 12.3 11.0-15.5 % Platelet Count 227 130-400 K/uL Mean Platelet Volume 10.1 7.5-10.5 fL Immature Granulocyte % (Auto) 0.3 0-1 % Neutrophils (%) (Auto) 59.9 40.0-77.0 % Lymphocytes (%) (Auto) 29.3 21.0-51.0 % Monocytes (%) (Auto) 8.2 3.0-13.0 % Eosinophils (%) (Auto) 1.7 0.0-8.0 % Basophils (%) (Auto) 0.6 0.0-5.0 % Neutrophils # (Auto) 4.2 1.8-7.7 K/uL Lymphocytes # (Auto) 2.0 1.0-4.8 K/uL Monocytes # (Auto) 0.6 0.1-1.0 K/uL Eosinophils # (Auto) 0.12 0.00-0.70 K/uL Basophils # (Auto) 0.04 0.00-0.20 K/uL Absolute Immature Granulocyte (auto 0.02 0-1 K/uL Nucleated Red Blood Cells 0.0 0.0-0.19 % Sodium Level 140 136-145 mmol/L Potassium Level 3.6 3.5-5.1 mmol/L Chloride Level 103 101-111 mmol/L Carbon Dioxide Level 27 21-32 mmol/L Blood Urea Nitrogen 11 7-18 mg/dL Creatinine 0.7 0.5-1.3 mg/dL Glomerular Filtration Rate Calc 99 >90 mL/min Random Glucose 121 H 70-105 mg/dL Total Calcium 8.5 8.5-10.1 mg/dL Urine Color LIGHT-ORANGE YELLOW Urine Appearance CLOUDY H CLEAR Urine pH 6.0 5.0-8.0 Urine Specific [place] 1.015 1.001-1.031 Urine Protein 10 H NEGATIVE mg/dL Urine Glucose (UA) NEGATIVE NEGATIVE mg/dL Urine Ketones NEGATIVE NEGATIVE mg/dL Urine Occult Blood LARGE H NEGATIVE Urine Nitrate NEGATIVE NEGATIVE Urine Bilirubin NEGATIVE NEGATIVE mg/dL Urine Urobilinogen 0.2 0.2-1.0 mg/dL Urine Leukocyte Esterase NEGATIVE NEGATIVE Yolette/uL Urine RBC TNTC H 0-1 /HPF Urine WBC 0-1 0-1 /HPF Urine Bacteria RARE None Seen /HPF Current Medications Medications (Trade) Dose Ordered Sig/Richard Route PRN Reason Start Time Stop Time Status Last Admin Dose Admin Acetaminophen (TYLenol 325MG TAB) 650 mg Q6H PRN PO MILD PAIN (1-3) 05/06/25 13:00 06/05/25 12:59 Famotidine (Pepcid 20mg Tab) 20 mg BID PO 05/06/25 21:00 06/05/25 20:59 05/08/25 08:43 20 MG Gemfibrozil (gemFIBROzil 600 MG TABLET) 600 mg DAILY PO 05/07/25 09:00 06/06/25 08:59 12/7/25 08:43 600 MG Home Med (Home Medication) VALSARTAN 320MG TAB DAILYDINNER PO 05/07/25 17:00 06/06/25 16:59 05/07/25 17:37 1 EACH Hydralazine HCl (APRESOLine 20MG INJ) 5 mg Q6H PRN IV ADMINISTER FOR SBP > 160 05/06/25 15:30 05/06/25 22:36 DC Hydralazine HCl (APRESOLine 20MG INJ) 5 mg Q6H PRN IV ADMINISTER FOR SBP > 160 05/06/25 22:30 06/05/25 22:29 Losartan Potassium (CozAAR 100MG TAB) 100 mg DAILYDINNER PO 05/06/25 17:00 05/07/25 08:00 DC Morphine Sulfate (morPHINE 2MG SYG) 2 mg Q6H PRN IVP SEVERE PAIN (7-10) 05/06/25 13:00 05/13/25 12:59 Ondansetron HCl (zoFRAN 4MG INJ) 4 mg Q6H PRN IVP NAUSEA/VOMITING 05/06/25 13:00 06/05/25 12:59 Potassium Chloride 100 ml @ 100 mls/hr AD PRN IV POTASSIUM PROTOCOL 05/08/25 11:00 06/07/25 10:59 Potassium Chloride (K-Dur/Klor-Con 20meq) 20 meq AD PRN PO POTASSIUM PROTOCOL 05/08/25 11:00 06/07/25 10:59 Potassium Chloride (KCl 10% Elixir 20meq/15ml) 20 meq AD PRN PO POTASSIUM PROTOCOL 05/08/25 11:00 06/07/25 10:59 Sodium Chloride 1,000 ml @ 0 mls/hr Q0M IV 05/06/25 10:30 05/07/25 00:44 DC 05/06/25 10:40 1,000 MLS/HR Sodium Chloride 1,000 ml @ 75 mls/hr [id number] IV 05/06/25 13:00 06/05/25 12:59 05/08/25 05:16 75 MLS/HR Vitamin B Complex/ Vit C/Folic Acid (Nephrovite Tablet) 1 cap DAILY PO 05/07/25 09:00 06/06/25 08:59 05/08/25 08:43 1 CAP DIAGNOSTICS / RADIOLOGY: [ ] ASSESSMENT: Large heterogenous 9.9 cm left renal mass concerning for renal cell carcinoma, POA Left-sided flank pain with intermittent hematuria, times Friday, POA History of hypertension, POA History of hypertriglyceridemia, POA PLAN: Continue admission to medical-surgical floor under telemetry monitoring Heart healthy diet Abdominal MRI performed yesterday, report pending Bone scan requested, likely to be done on 05/09/2025 Consultation with Urology requested with Dr. Zavala; follow up recommendations Consultation with medical oncology with Dr. Simmons requested; follow recommendations Continue valsartan 320 mg daily and gemfibrozil once a day All labs will be repeated in the morning We will keep patient on DVT prophylaxis with SCDs and GI prophylaxis with Pepcid P.r.n. medications for fever, pain, nausea, constipation Further orders per hospital course DARLIN SUÁREZ PAC May 08, 2025 10:51
--- NOTE | 2025-05-08 10:59 | PN ---
This is a 69-year-old male with underlying history of hypertension maintained on outpatient treatment with valsartan, gemfibrozil, who presented to the ER for further evaluation of left-sided flank pain with episode of hematuria that started close to 1:00 a.m., patient reports that the pain woke him up and it was moderate in intensity. Patient reports passing blood clot in the urine with hematuria. The episode happened again close to 7:00 a.m. and patient reports feeling mild nausea with the symptoms. Given nonresolving symptoms, patient presented to the ER for further evaluation. Patient denies any weight loss. Denies any previous renal abnormalities. Patient does report that in his 20s, he needed IVP for renal evaluation, denies any history of renal stone or being told he had renal abnormalities. Patient denies any fevers or chills. Does report having history of hypertension and has been maintained on outpatient treatment valsartan as well as a history of hypertriglyceridemia maintained on outpatient treatment with gemfibrozil. Patient denies any history of significant smoking or exposure to heavy industrial chemicals. CT scan of the abdomen pelvis showing left kidney mass 9.9 cm not invading the collecting system. The left renal vein patent with no thrombus. REVIEW OF SYSTEMS CONSTITUTIONAL: FEVER; No FEVER; SWEATS; No SWEATS; CHILLS; No CHILLS, No WEIGHT LOSS HEENT: JAUNDICE; No JAUNDICE; SORE THROAT; No SORE THROAT; SINUS PRESSURE; No S INUS PRESSURE, No VISION CHANGES RESPIRATORY: COUGH; No COUGH; CHEST PAIN; No CHEST PAIN, No SHORTNESS OF BREATH, No HEMOPTYSIS CARDIOVASCULAR: PALPATIONS; No PALPATIONS, No DYSPNEA ON EXERTION, No SYNCOPE GENITOURINARY: HEMATURIA HEMATOLOGIC/LYMPHATIC: No EASY BRUISING, No CERVICAL ADENOPATHY, No AXILLARY ADENOPATHY, No INGUINAL ADENOPATHY MUSCULOSKELETAL: BONE PAIN; No BONE PAIN, No MASS; NORMAL RANGE OF MOTION; No N ORMAL RANGE OF MOTION SKIN/BREASTS: BREAST MASS; No BREAST MASS, No NIPPLE INVERSION, No RASH NEUROLOGICAL: No WEAKNESS-EXTREMETIES, No DIPLOPIA, No NUMBNESS, No TINGLING PSYCHOLOGICAL: No SUICIDAL IDEATION PHYSICAL EXAM VITALS: Vital Signs Date Time Temp Pulse Resp B/P (MAP) Pulse Ox O2 Delivery O2 Flow Rate FiO2 05/06/25 16:00 98.2 63 18 140/78 100 Room Air 05/06/25 14:14 0 21 GENERAL: ALERT, ORIENTED, APPEARS-NO ACUTE DISTRESS EYES: SCLERAE ANICTERIC, PUPILS EQUAL/REACTIVE, EXTRAOCULAR MUSCLES INTCT ENT/NECK: ORAL MUCOSA W/O LESIONS, OROPHARYNX IS CLEAR, NECK SUPPLE W/O MASSES RESPIRATORY: LUNGS CLEAR-AUSC/PERCUS CARDIOVASCULAR: REGULAR RATE GASTROINTESTINAL: ABDOMEN IS SOFT HEMATOLOGY/LYMPHATIC: No CERVICAL ADENOPATHY, No SUPRACLAVICULR ADENOPATHY, No AXILLARY ADENOPATHY, No INGUINAL ADENOPATHY MUSCULOSKELETAL: CYANOSIS-EXTREMETIES; No CYANOSIS-EXTREMETIES, No CLUBBING, No EDEMA SKIN/BREASTS: MASSES; No MASSES, No RASH, No HIVES NEUROLOGICAL: GROSSLY INTACT PSYCHOLOGICAL: MINI MENTAL ASSMT INTACT IMPRESSION Largest heterogenous 9.9 cm left renal mass concerning for renal cell carcinoma, POA Left-sided flank pain with intermittent hematuria, times Friday, POA History of hypertension, POA History of hypertriglyceridemia, POA Plan 1. CT scan of the abdomen pelvis showing left kidney mass 9.9 cm not invading the collecting system. The left renal vein patent with no thrombus. It looks like clear-cell carcinoma. CT scan of the chest was negative. There is plan for bone scan to be done tomorrow. After patient doing the imaging study he could be discharged to follow-up with us as outpatient. If the patient to have metastatic disease in this patient will be started on palliative chemo. If there is no metastatic disease then this patient could be sent to surgery for radical nephrectomy 2. I have long discussion with the patient regarding the plan of care. I answer all question and concern and I spent more than 35 minutes. No need for biopsy. This patient will need surgery to be done. Urology were consulted. 3. No need for blood product transfusion Vitals/Labs Vital Signs Date Time Temp Pulse Resp B/P (MAP) Pulse Ox O2 Delivery O2 Flow Rate FiO2 05/08/25 09:05 97 Room Air* 0 21 05/08/25 08:00 98.1 56 16 131/82 Laboratory Tests 05/08/25 04:46 Medications Current Medications Sodium Chloride 1,000 ml @ 0 mls/hr Q0M IV Last administered on 05/06/25at 10:40; Start 05/06/25 at 10:30; Stop 05/07/25 at 00:44; Status DC Ketorolac Tromethamine 15 mg ONCE ONCE IV; Start 05/06/25 at 10:30; Stop 05/06/25 at 10:31; Status DC Ondansetron HCl 4 mg ONCE ONCE IVP; Start 05/06/25 at 10:30; Stop 05/06/25 at 10:31; Status DC Sodium Chloride 1,000 ml @ 75 mls/hr [id number] IV Last administered on 05/08/25at 05:16; Start 05/06/25 at 13:00; Stop 06/05/25 at 12:59 Famotidine 20 mg BID PO Last administered on 05/08/25at 08:43; Start 05/06/25 at 21:00; Stop 06/05/25 at 20:59 Morphine Sulfate 2 mg Q6H PRN IVP; Start 05/06/25 at 13:00; Stop 05/13/25 at 12:59 Acetaminophen 650 mg Q6H PRN PO; Start 05/06/25 at 13:00; Stop 06/05/25 at 12:59 Ondansetron HCl 4 mg Q6H PRN IVP; Start 05/06/25 at 13:00; Stop 06/05/25 at 12:59 Vitamin B Complex/ Vit C/Folic Acid 1 cap DAILY PO Last administered on 05/08/25at 08:43; Start 05/07/25 at 09:00; Stop 06/06/25 at 08:59 Iohexol 75 ml STK-MED ONCE IV; Start 05/06/25 at 13:35; Stop 05/06/25 at 13:36; Status DC Gemfibrozil 600 mg DAILY PO Last administered on 05/08/25at 08:43; Start 05/07/25 at 09:00; Stop 06/06/25 at 08:59 Losartan Potassium 100 mg DAILYDINNER PO; Start 05/06/25 at 17:00; Stop 05/07/25 at 08:00; Status DC Hydralazine HCl 5 mg Q6H PRN IV; Start 05/06/25 at 15:30; Stop 05/06/25 at 22:36; Status DC Hydralazine HCl 5 mg Q6H PRN IV; Start 05/06/25 at 22:30; Stop 06/05/25 at 22:29 Iohexol 35,000 mg STK-MED ONCE IV; Start 05/07/25 at 07:39; Stop 05/07/25 at 07:39; Status DC Home Med VALSARTAN 320MG TAB DAILYDINNER PO Last administered on 05/07/25at 17:37; Start 05/07/25 at 17:00; Stop 06/06/25 at 16:59 Iohexol 50 ml STK-MED ONCE IV; Start 05/07/25 at 10:12; Stop 05/07/25 at 10:12; Status DC Potassium Chloride 100 ml @ 100 mls/hr AD PRN IV; Start 05/08/25 at 11:00; Stop 06/07/25 at 10:59 Potassium Chloride 20 meq AD PRN PO; Start 05/08/25 at 11:00; Stop 06/07/25 at 10:59 Potassium Chloride 20 meq AD PRN PO; Start 05/08/25 at 11:00; Stop 06/07/25 at 10:59 KETTY JUNIOR MD May 08, 2025 10:59
[2025-05-08] MEDS ORDERED: PoTASSium chl 10% ELIXIR 20MEQ 20 MEQ/15 ML UDCUP PO PRN (11:00)
[2025-05-08] MEDS: PoTASSium chloRIDE 20MEQ ER 20 MEQ ERTAB PO PRN (16:37)
[2025-05-09] VITALS (8 sets, daily range): BP systolic 130–145; BP diastolic 76–88; PULSE 53–80; RESP 16–17; TEMP 97.5–98.4; O2SAT 98
[2025-05-09 03:28] LABS: IMMATURE GRANULOCYTE ABSOLUTE 0.00 K/uL (0-1); NUCLEATED RED BLOOD CELLS 0.0 % (0.0-0.19); PLATELET COUNT (AUTO) 199 K/uL (130-400); RED BLOOD CELL COUNT(AUTO) 4.39 MIL/uL (4.50-6.20); RED CELL DISTRIBUTION WIDTH 12.5 % (11.0-15.5); WHITE BLOOD COUNT (AUTO) 5.4 K/uL (4.8-10.8)
[2025-05-09 03:35] LABS: CREATININE 0.7 mg/dL (0.5-1.3); GLOMERULAR FILTR. RATE CALC 99.0 mL/min (>90); GLUCOSE,RANDOM 121.0 mg/dL (70-105); SODIUM SERUM 139.0 mmol/L (136-145); UREA NITROGEN, BLOOD 14.0 mg/dL (7-18)
--- NOTE | 2025-05-09 08:45 | HMCIMG ---
EXAM: MRA Abdomen with and without Intravenous Contrast. CLINICAL HISTORY: Hematuria with known left renal mass; evaluation for tumor thrombus in vena cava. TECHNIQUE: Axial MRA images of the abdomen and pelvis were obtained before and after intravenous contrast. Three-dimensional MIP reformations were performed. Series acquired: 3 - COR SSFSE ARC - TR: 676.8 - TE: 89.3 - ET: 1.0 - Thk: 6.0 5 - COR LAVA ARC - TR: 4.4 - TE: 2.1 - ET: 1.0 - Thk: 4.4 6 - AX SSFSE BH ARC - TR: 571.1 - TE: 89.3 - ET: 1.0 - Thk: 6.0 7 - AX 3D DUALECHO JOSE - TR: 6.7 - TE: 4.3 - ET: 1.0 - Thk: 4.4 8 - AX DWI B=500 - TR: 3400.0 - TE: 59.3 - ET: 1.0 - Thk: 6.0 9 - AX T2 FRFSE FATSAT JOSE ARC - TR: 42694.7 - TE: 103.8 - ET: 17.0 - Thk: 6.0 10 - AX LAVA ARC - TR: 4.1 - TE: 1.9 - ET: 1.0 - Thk: 4.4 11 - COR 2D FIESTA FATSAT - TR: 4.2 - TE: 1.7 - ET: 1.0 - Thk: 6.0 12 - SAG 2D FIESTA FATSAT - TR: 4.5 - TE: 1.7 - ET: 1.0 - Thk: 5.0 14 - G+ COR LAVA ARC - TR: 4.4 - TE: 2.1 - ET: 1.0 - Thk: 4.4 15 - G+ AX LAVA ARC - TR: 4.1 - TE: 1.9 - ET: 1.0 - Thk: 4.4 CONTRAST: With and without intravenous contrast. COMPARISON: CT Abdomen/Pelvis with and without contrast dated 05/06/2025 10:5914:05 EST. FINDINGS: AORTA AND MAJOR VESSELS: Abdominal aorta of normal caliber without aneurysm, dissection, or significant stenosis. Severe calcific atherosclerosis of the abdominal aorta and major branches as seen on prior CT. No flow-limiting stenosis or occlusion in the celiac trunk, superior mesenteric artery, inferior mesenteric artery, or renal arteries. LIVER AND HEPATOBILIARY: Mild hepatomegaly with fatty infiltration consistent with hepatic steatosis. No focal enhancing hepatic lesion. Gallbladder and bile ducts appear unremarkable on this examination. KIDNEYS, RENAL VEINS, AND IVC: Right kidney demonstrates a small exophytic upper-pole cortical cyst measuring approximately 1.2 cm, without suspicious enhancement. No right renal mass. Left kidney contains a large predominantly exophytic solidcystic mass centered in the mid and lower pole, measuring approximately 9.2 x 8.5 x 7.6 cm on current MRA (compatible in size with prior CT measurement ?9.9 x 7.7 x 6.7 cm). The mass shows heterogeneous enhancement of the solid components with a nonenhancing central necrotic/cystic portion and corresponds to the known renal cell carcinoma. The collecting system is displaced but not overtly invaded. Bilateral parapelvic cysts are present. Left renal vein opacifies normally without intraluminal filling defect. Inferior vena cava is patent without evidence of tumor thrombus. No direct invasion of the IVC wall is seen. PANCREAS, SPLEEN, AND ADRENALS: Pancreas, spleen, and adrenal glands appear unremarkable on this MRA. BOWEL AND PERITONEUM: Diffuse uncomplicated colonic diverticulosis is again noted. No bowel obstruction, focal bowel wall thickening, or intra-abdominal fluid collection is identified. OTHER: No pathologic abdominal lymphadenopathy. No new focal soft tissue mass. Previously described right hemidiaphragm elevation and prostatomegaly are better characterized on CT and remain presumed stable. IMPRESSION: * Large solidcystic, heterogeneously enhancing left renal mass (?910 cm), unchanged in overall extent compared with CT of 05/06/2025, compatible with renal cell carcinoma (at least clinical stage T2a N0 M0 on current cross-sectional imaging), with associated bilateral parapelvic cysts and a stable simple right upper-pole renal cortical cyst. * Left renal vein and inferior vena cava remain patent without evidence of tumor thrombus or direct venous invasion on this MRA, in keeping with absence of macroscopic venous tumor extension. /[place]
--- NOTE | 2025-05-09 10:58 | PN ---
[facility] PROGRESS NOTE Date of Service: May 09, 2025 Time of Service: 10:[address] Combs SUBJECTIVE: Follow up visit for a 49-year-old male admitted to the hospital for left renal mass. Consultation with Urology has been requested pending evaluation. On cology has also been requested following recommendations. Morning labs reviewed. 05/08/2025: Patient continues to be followed closely by Urology, and Oncology. Abdominal MRI performed yesterday, report pending. Bone scan has been requested, pending. Morning labs reviewed. 05/09 patient was seen by nurse practitioner and physician during rounding in room 429. Patient is pending results for bone scan. As per MRI of the abdomen showed renal cell carcinoma changed. At this moment we are pending further recommendations from urologist and oncologist. We will also order ultrasound read for abnormal results on chest CT which showed heterogenous nodular thyroid. We will continue to monitor patient in the meantime. A.m. labs. Anticipated discharge within 24 hours once cleared. REVIEW OF SYSTEMS CONSTITUTIONAL: Denies fevers, chills, or night sweats. No unintentional weight loss reported. NEUROLOGICAL: Denies headache, amaurosis fugax, motor weakness, sensory deficit, vertigo/spinning sensation, gait abnormalities, or tremors. ENT: No hearing loss, otalgia, otorrhea, rhinitis, rhinorrhea, hoarseness, or sore throat. CARDIOVASCULAR: Denies any exertional angina, dyspnea on exertion, orthopnea, paroxysmal nocturnal dyspnea, palpitations, life-threatening arrhythmias, claudication. PULMONARY: Denies any shortness of breath, cough, phlegm/sputum, hemoptysis, pleuritic chest pain. SLEEP: Denies morning headaches, daytime somnolence or napping. Denies difficulty falling asleep, staying asleep, waking from sleep. Denies knowledge of snoring. GASTROINTESTINAL: Denies any type of dysphagia to either liquids or solids. Denies nausea, vomiting, pyrosis, early satiety, abdominal pain, diarrhea, constipation, or changes in stool consistency or caliber. Denies coffee-ground emesis, hematemesis, hematochezia, or melanotic stools. GENITOURINARY: Left-sided flank pain hematuria stopped on Friday around noon ENDOCRINOLOGIC: Denies polyuria, polydipsia, polyphagia or heat/cold intolerances. HEMATOLOGIC: Denies thrombophilia/previous clots, or coagulopathy/bleeding disorders. ONCOLOGIC: Denies personal history of malignancy. DERMATOLOGIC: Denies rashes or pruritus. PSYCHIATRIC: Denies any suicidal or homicidal ideation. Denies hallucinations. PHYSICAL EXAM GENERAL APPEARANCE: The patient is awake, alert, and oriented, in no acute cardiopulmonary distress. NEUROLOGICAL: Cranial nerves II-XII grossly intact. Motor is 5/5 in bilateral upper and lower extremities proximal to distal. No sensory deficits. HEENT: Face is symmetric. Pupils are equal and reactive. Extraocular movements are intact. NECK: Supple. No JVD. No thyromegaly. No submental, submandibular, pre- /postauricular, occipital or supraclavicular lymphadenopathy. CHEST: Normal chest expansion. No Telemetry. LUNGS: Absence of any rales, rhonchi or any wheezing. CARDIOVASCULAR: Regular. S1 and S2 normal. No appreciable rubs, murmurs or gallops. ABDOMEN: Soft, nondistended. Tenderness to palpation of the left flank with a palpable mass noted : Deferred. No Macias. EXTREMITIES: Non-edematous and not cyanotic. No clubbing. Good capillary refill. SKIN: No skin breakdown. Vital Signs (last 8hr) Date Time Temp Pulse Resp B/P (MAP) Pulse Ox O2 Delivery O2 Flow Rate FiO2 05/09/25 07:00 98.1 54 16 137/76 Room Air 05/09/25 03:38 98.1 53 17 131/84 94 Room Air LABS: Laboratory: Test 05/09/25 03:06 Range/Units White Blood Count 5.4 4.8-10.8 K/uL Red Blood Count 4.39 L 4.50-6.20 MIL/uL Hemoglobin 13.3 L 14.0-18.0 g/dL Hematocrit 38.9 L 42-54 % Mean Corpuscular Volume 88.6 79-99 fL Mean Corpuscular Hemoglobin 30.3 27.0-33.0 pg Mean Corpuscular Hemoglobin Concent 34.2 32.0-36.0 g/dL Red Cell Distribution Width 12.5 11.0-15.5 % Platelet Count 199 130-400 K/uL Mean Platelet Volume 9.9 7.5-10.5 fL Immature Granulocyte % (Auto) 0.0 0-1 % Neutrophils (%) (Auto) 57.1 40.0-77.0 % Lymphocytes (%) (Auto) 29.4 21.0-51.0 % Monocytes (%) (Auto) 9.0 3.0-13.0 % Eosinophils (%) (Auto) 3.9 0.0-8.0 % Basophils (%) (Auto) 0.6 0.0-5.0 % Neutrophils # (Auto) 3.1 1.8-7.7 K/uL Lymphocytes # (Auto) 1.6 1.0-4.8 K/uL Monocytes # (Auto) 0.5 0.1-1.0 K/uL Eosinophils # (Auto) 0.21 0.00-0.70 K/uL Basophils # (Auto) 0.03 0.00-0.20 K/uL Absolute Immature Granulocyte (auto 0.00 0-1 K/uL Nucleated Red Blood Cells 0.0 0.0-0.19 % Sodium Level 139 136-145 mmol/L Potassium Level 3.9 3.5-5.1 mmol/L Chloride Level 106 101-111 mmol/L Carbon Dioxide Level 25 21-32 mmol/L Blood Urea Nitrogen 14 7-18 mg/dL Creatinine 0.7 0.5-1.3 mg/dL Glomerular Filtration Rate Calc 99 >90 mL/min Random Glucose 121 H 70-105 mg/dL Total Calcium 8.3 L 8.5-10.1 mg/dL Current Medications Medications (Trade) Dose Ordered Sig/Richard Route PRN Reason Start Time Stop Time Status Last Admin Dose Admin Acetaminophen (TYLenol 325MG TAB) 650 mg Q6H PRN PO MILD PAIN (1-3) 05/06/25 13:00 06/05/25 12:59 Famotidine (Pepcid 20mg Tab) 20 mg BID PO 05/06/25 21:00 06/05/25 20:59 05/09/25 09:04 20 MG Gemfibrozil (gemFIBROzil 600 MG TABLET) 600 mg DAILY PO 05/07/25 09:00 06/06/25 08:59 05/09/25 09:03 600 MG Home Med (Home Medication) VALSARTAN 320MG TAB DAILYDINNER PO 05/07/25 17:00 06/06/25 16:59 05/08/25 18:07 1 EACH Hydralazine HCl (APRESOLine 20MG INJ) 5 mg Q6H PRN IV ADMINISTER FOR SBP > 160 05/06/25 15:30 05/06/25 22:36 DC Hydralazine HCl (APRESOLine 20MG INJ) 5 mg Q6H PRN IV ADMINISTER FOR SBP > 160 05/06/25 22:30 06/05/25 22:29 Losartan Potassium (CozAAR 100MG TAB) 100 mg DAILYDINNER PO 05/06/25 17:00 05/07/25 08:00 DC Morphine Sulfate (morPHINE 2MG SYG) 2 mg Q6H PRN IVP SEVERE PAIN (7-10) 05/06/25 13:00 05/13/25 12:59 Ondansetron HCl (zoFRAN 4MG INJ) 4 mg Q6H PRN IVP NAUSEA/VOMITING 05/06/25 13:00 06/05/25 12:59 Potassium Chloride 100 ml @ 100 mls/hr AD PRN IV POTASSIUM PROTOCOL 05/08/25 11:00 06/07/25 10:59 Potassium Chloride (K-Dur/Klor-Con 20meq) 20 meq AD PRN PO POTASSIUM PROTOCOL 05/08/25 11:00 06/07/25 10:59 05/08/25 20:52 20 MEQ Potassium Chloride (KCl 10% Elixir 20meq/15ml) 20 meq AD PRN PO POTASSIUM PROTOCOL 05/08/25 11:00 06/07/25 10:59 Sodium Chloride 1,000 ml @ 0 mls/hr Q0M IV 05/06/25 10:30 05/07/25 00:44 DC 05/06/25 10:40 1,000 MLS/HR Sodium Chloride 1,000 ml @ 75 mls/hr [id number] IV 05/06/25 13:00 06/05/25 12:59 05/09/25 04:26 75 MLS/HR Vitamin B Complex/ Vit C/Folic Acid (Nephrovite Tablet) 1 cap DAILY PO 05/07/25 09:00 06/06/25 08:59 05/09/25 09:03 1 CAP DIAGNOSTICS / RADIOLOGY: [ ] ASSESSMENT: Large heterogenous 9.9 cm left renal mass concerning for renal cell carcinoma, POA Left-sided flank pain with intermittent hematuria, times Friday, POA History of hypertension, POA History of hypertriglyceridemia, POA PLAN: Patient is pending results for bone scan. As per MRI of the abdomen showed renal cell carcinoma changed. At this moment we are pending further recommendations from urologist and oncologist. We will also order ultrasound read for abnormal results on chest CT which showed heterogenous nodular thyroid. We will continue to monitor patient in the meantime. A.m. labs. Anticipated discharge within 24 hours once cleared. Heart healthy diet Bone scan requested, likely to be done on 05/09/2025 Continue valsartan 320 mg daily and gemfibrozil once a day All labs will be repeated in the morning We will keep patient on DVT prophylaxis with SCDs and GI prophylaxis with Pepcid P.r.n. medications for fever, pain, nausea, constipation Further orders per hospital course ATTESTATION BY PHYSICIAN I have seen and examined the patient. I reviewed the documentation, medical deci costa making, and treatment plan as noted by the mid-level provider above. I agree with the findings and plan of care. DEMARIO COMBS MD, [employer] May 09, 2025 10:58
--- NOTE | 2025-05-09 18:19 | PN ---
This is a 69-year-old male with underlying history of hypertension maintained on outpatient treatment with valsartan, gemfibrozil, who presented to the ER for further evaluation of left-sided flank pain with episode of hematuria that started close to 1:00 a.m., patient reports that the pain woke him up and it was moderate in intensity. Patient reports passing blood clot in the urine with hematuria. The episode happened again close to 7:00 a.m. and patient reports feeling mild nausea with the symptoms. Given nonresolving symptoms, patient presented to the ER for further evaluation. Patient denies any weight loss. Denies any previous renal abnormalities. Patient does report that in his 20s, he needed IVP for renal evaluation, denies any history of renal stone or being told he had renal abnormalities. Patient denies any fevers or chills. Does report having history of hypertension and has been maintained on outpatient treatment valsartan as well as a history of hypertriglyceridemia maintained on outpatient treatment with gemfibrozil. Patient denies any history of significant smoking or exposure to heavy industrial chemicals. CT scan of the abdomen pelvis showing left kidney mass 9.9 cm not invading the collecting system. The left renal vein patent with no thrombus. PHYSICAL EXAM GENERAL: ALERT, ORIENTED, APPEARS-NO ACUTE DISTRESS EYES: SCLERAE ANICTERIC, PUPILS EQUAL/REACTIVE, EXTRAOCULAR MUSCLES INTCT ENT/NECK: ORAL MUCOSA W/O LESIONS, OROPHARYNX IS CLEAR, NECK SUPPLE W/O MASSES RESPIRATORY: LUNGS CLEAR-AUSC/PERCUS CARDIOVASCULAR: REGULAR RATE GASTROINTESTINAL: ABDOMEN IS SOFT HEMATOLOGY/LYMPHATIC: No CERVICAL ADENOPATHY, No SUPRACLAVICULR ADENOPATHY, No AXILLARY ADENOPATHY, No INGUINAL ADENOPATHY MUSCULOSKELETAL: CYANOSIS-EXTREMETIES; No CYANOSIS-EXTREMETIES, No CLUBBING, No EDEMA SKIN/BREASTS: MASSES; No MASSES, No RASH, No HIVES NEUROLOGICAL: GROSSLY INTACT PSYCHOLOGICAL: MINI MENTAL ASSMT INTACT IMPRESSION Largest heterogenous 9.9 cm left renal mass concerning for renal cell carcinoma, POA Left-sided flank pain with intermittent hematuria, times Friday, POA History of hypertension, POA History of hypertriglyceridemia, POA Plan 1. CT scan of the abdomen pelvis showing left kidney mass 9.9 cm not invading the collecting system. The left renal vein patent with no thrombus. It looks like clear-cell carcinoma. CT scan of the chest was negative. Bone scan was done we will follow-up with the result After patient doing the imaging study he could be discharged to follow-up with us as outpatient. If the patient to have metastatic disease in this patient will be started on palliative chemo. If there is no metastatic disease then this patient could be sent to surgery for radical nephrectomy 2. I have long discussion with the patient regarding the plan of care. I answer all question and concern and I spent more than 35 minutes. No need for biopsy. This patient will need surgery to be done. Urology were consulted. 3. No need for blood product transfusion I will try to see if we could get him appointment as soon as possible with urology for nephrectomy. Vitals/Labs Vital Signs Date Time Temp Pulse Resp B/P (MAP) Pulse Ox O2 Delivery O2 Flow Rate FiO2 05/09/25 11:00 98 Room Air* 0 21 05/09/25 10:50 98.4 59 16 135/86 Laboratory Tests 05/09/25 03:06 Medications Current Medications Sodium Chloride 1,000 ml @ 0 mls/hr Q0M IV Last administered on 05/06/25at 10:40; Start 05/06/25 at 10:30; Stop 05/07/25 at 00:44; Status DC Ketorolac Tromethamine 15 mg ONCE ONCE IV; Start 05/06/25 at 10:30; Stop 05/06/25 at 10:31; Status DC Ondansetron HCl 4 mg ONCE ONCE IVP; Start 05/06/25 at 10:30; Stop 05/06/25 at 10:31; Status DC Sodium Chloride 1,000 ml @ 75 mls/hr [id number] IV Last administered on 05/09/25at 17:14; Start 05/06/25 at 13:00; Stop 06/05/25 at 12:59 Famotidine 20 mg BID PO Last administered on 05/09/25at 09:04; Start 05/06/25 at 21:00; Stop 06/05/25 at 20:59 Morphine Sulfate 2 mg Q6H PRN IVP; Start 05/06/25 at 13:00; Stop 05/13/25 at 12:59 Acetaminophen 650 mg Q6H PRN PO; Start 05/06/25 at 13:00; Stop 06/05/25 at 12:59 Ondansetron HCl 4 mg Q6H PRN IVP; Start 05/06/25 at 13:00; Stop 06/05/25 at 12:59 Vitamin B Complex/ Vit C/Folic Acid 1 cap DAILY PO Last administered on 05/09/25at 09:03; Start 05/07/25 at 09:00; Stop 06/06/25 at 08:59 Iohexol 75 ml STK-MED ONCE IV; Start 05/06/25 at 13:35; Stop 05/06/25 at 13:36; Status DC Gemfibrozil 600 mg DAILY PO Last administered on 05/09/25at 09:03; Start 05/07/25 at 09:00; Stop 06/06/25 at 08:59 Losartan Potassium 100 mg DAILYDINNER PO; Start 05/06/25 at 17:00; Stop 05/07/25 at 08:00; Status DC Hydralazine HCl 5 mg Q6H PRN IV; Start 05/06/25 at 15:30; Stop 05/06/25 at 22:36; Status DC Hydralazine HCl 5 mg Q6H PRN IV; Start 05/06/25 at 22:30; Stop 06/05/25 at 22:29 Iohexol 35,000 mg STK-MED ONCE IV; Start 05/07/25 at 07:39; Stop 05/07/25 at 07:39; Status DC Home Med VALSARTAN 320MG TAB DAILYDINNER PO Last administered on 05/09/25at 17:14; Start 05/07/25 at 17:00; Stop 06/06/25 at 16:59 Iohexol 50 ml STK-MED ONCE IV; Start 05/07/25 at 10:12; Stop 05/07/25 at 10:12; Status DC Potassium Chloride 100 ml @ 100 mls/hr AD PRN IV; Start 05/08/25 at 11:00; Stop 06/07/25 at 10:59 Potassium Chloride 20 meq AD PRN PO; Start 05/08/25 at 11:00; Stop 06/07/25 at 10:59 Potassium Chloride 20 meq AD PRN PO Last administered on 05/08/25at 20:52; Start 05/08/25 at 11:00; Stop 06/07/25 at 10:59 KETTY JUNIOR MD May 09, 2025 18:19
--- NOTE | 2025-05-09 22:37 | CONS ---
REQUESTING PHYSICIAN: Dr. Schafer. REASON FOR CONSULTATION: Left flank pain with left renal mass. HISTORY OF PRESENT ILLNESS: The patient is a 69-year-old male who presents to the hospital because of left flank pain of one day's duration with gross hematuria and a few small clots. The patient had a slight amount of nausea at that time. The patient currently encountered lying in bed comfortably and completely pain-free. Urine is not grossly clear. He has had no hematuria before this episode or since. The patient denies any smoking history. He has no dysuria and no recent weight loss. ALLERGIES: The patient's allergies are recorded as none. MEDICATIONS: His current medications include p.r.n. pain medication, Zofran for nausea if needed, antipyretics, Tylenol and Toradol as well as Zofran. PAST MEDICAL HISTORY: Hyperglycemia and hypertension. PAST SURGICAL HISTORY: Negative. FAMILY HISTORY: No. SOCIAL HISTORY: The patient is with 1 child. 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 REVIEW OF SYSTEMS: He has no shortness of breath or chest pain. His appetite is good. No nausea, vomiting, constipation or diarrhea. No headaches, no dizziness, no nosebleeds. No joint pain, joint swelling, limitation of movement. No night sweats, fever, chills, or skin rash. PHYSICAL EXAMINATION: GENERAL: Adult male in no distress. VITAL SIGNS: Temperature is 98. Blood pressure is 131/72. NECK: No adenopathy or supraclavicular masses palpable. LUNGS: Lung roberts are clear to auscultation. HEART: Heart sounds are best heard in the fifth intercostal space. ABDOMEN: Obese, soft and nontender. BACK: Has no CVA tenderness. GENITALIA: Phallus free of any lesions. Not circumcised. Testicles are descended bilaterally, nontender, no masses. RECTAL: Rectal examination reveals a normal anus, sphincter and empty rectum, 35 grams benign feeling prostate, no nodules. Lateral sulci clear as well as the median raphe. LABORATORY DATA: The patient's available laboratory data is reviewed in detail. White count is 8, hematocrit is 43. The patient's platelet count is 229, sodium 139, potassium 3.9, BUN and creatinine of 15 and 1.1. Urinalysis results are pending. IMAGING STUDIES: CT scan of the abdomen and pelvis with and without IV contrast carefully reviewed. He has a 9.3-cm lower pole exophytic mass in the kidney on the left-hand side. No apparent adenopathy noted. He has significant neovascularity evident. The patient's renal vein appears to be free of any clot. ASSESSMENT: Large left renal mass, 9.3 cm hematuria. RECOMMENDATIONS: * The patient to have a urinalysis documented on chart. * To have a bone scan for metastatic workup. * MRI of IVC and renal vein to show absence of any flow defect. * A chest CT scan without IV contrast. * The patient was advised that if metastatic workup is negative, treatment options recommended include radical left nephrectomy to be performed as soon as possible. * Risks, benefits, alternatives, potential complications of radical nephrectomy including possible robotic nephrectomy versus open surgery were discussed and reviewed with the patient today. * The patient is clinically stable, may be therefore discharged home once his metastatic workup is complete and follow up with me as an outpatient for surgical planning and nephrectomy as soon as possible. * Finally, importance of compliance was stressed to the patient. His concerns were answered. Thank you for the opportunity for providing consultation on your patient. TID: [id number] RECEIPT: [id number]
[2025-05-10 03:26] LABS: IMMATURE GRANULOCYTE ABSOLUTE 0.02 K/uL (0-1); NUCLEATED RED BLOOD CELLS 0.0 % (0.0-0.19); PLATELET COUNT (AUTO) 186 K/uL (130-400); RED BLOOD CELL COUNT(AUTO) 4.12 MIL/uL (4.50-6.20); RED CELL DISTRIBUTION WIDTH 12.7 % (11.0-15.5); WHITE BLOOD COUNT (AUTO) 5.8 K/uL (4.8-10.8)
[2025-05-10 03:40] LABS: ASPARTATE AMINOTRANSFERASE 21.0 U/L (10-37); CREATININE 0.7 mg/dL (0.5-1.3); GLOMERULAR FILTR. RATE CALC 99.0 mL/min (>90); GLUCOSE,RANDOM 112.0 mg/dL (70-105); SODIUM SERUM 139.0 mmol/L (136-145); TOTAL PROTEIN, SERUM 5.8 g/dL (6.0-8.3); UREA NITROGEN, BLOOD 12.0 mg/dL (7-18)
[2025-05-10 04:00] VITALS: BP 140/81; PULSE 55; RESP 17; TEMP 98.1
--- NOTE | 2025-05-10 05:59 | HMCIMG ---
EXAM: Whole body bone scan. INDICATION: Renal mass to evaluate for skeletal metastases. REFERENCE EXAMINATION: None TECHNIQUE: 21.7 mCi of technetium 99m MDP intravenously. Delayed images were acquired approximately 3 hours after tracer administration. FINDINGS: The radiopharmaceutical is seen in the expected biodistribution. Focal uptake in the right 6th rib - likely due to old traumatic injury. No abnormal uptake noted in the entire skeleton. IMPRESSION: Normal Bone scan with no obvious evidence of osteoblastic skeletal metastases. /[place]
--- NOTE | 2025-05-10 06:15 | HMCIMG ---
EXAMINATION: ULTRASOUND OF THE THYROID. CLINICAL HISTORY: Thyroid nodules. COMPARISON: CT chest without contrast dated 05/07/2025. TECHNIQUE: Transverse and longitudinal images were obtained through both lobes and the isthmus of the thyroid. FINDINGS: The thyroid gland is normal in caliber with homogenous tissue echotexture. The right thyroid lobe measures 3.1 x 1.3 x 1.3 cm and the left thyroid lobe measures 3.7 x 1.1 x 1.5 cm in the craniocaudal, AP, and transverse dimensions respectively. The isthmus measures 0.1 cm in AP dimension. Right lobe: There are no focal lesions. Left lobe: There is a hypoechoic solid nodule that measures 0.9 x 0.4 x 0.8 cm at the upper pole (TR4). There is a hypoechoic solid nodule that measures 1.3 x 1.0 x 0.8 cm at the mid pole with calcifications (TR5). No significantly enlarged lymph nodes. IMPRESSION: Nodules in the left lobe of the thyroid. TI-RADS follow up recommendations: TR1: no FNA required TR2: no FNA required TR3: more than or equal to 1.5 cm follow up, more than or equal to 2.5 cm FNA follow up: 1, 3 and 5 years TR4: more than or equal to 1.0 cm follow up, more than or equal to 1.5 cm FNA follow up: 1, 2, 3 and 5 years TR5: more than or equal to 0.5 cm follow up, more than or equal to 1.0 cm FNA annual follow up for up to 5 years /[place]
[2025-05-10 07:20] VITALS: BP 142/86; PULSE 56; RESP 18; TEMP 97.8
--- NOTE | 2025-05-10 08:26 | NUR ---
PATIENT DISCHARGE RECEIVED REPORT FROM NIGHT NURSE, PATIENT WITH DISCHARGE ORDERS. PATIENT DISCHARGED TO HOME. PERIPHERAL IV REMOVED, CATHETER INTACT. DISCHARGE INSTRUCTIONS GIVEN. NEW PRESCRIPTIONS FAXED TO PHARMACY. PATIENT AWARE TO F/U WITH DR. JUNIOR. PATIENT AWARE TO F/U WITH DR. TERRAZAS. PATIENT AWARE TO F/U WITH PCP. ALL QUESTIONS ANSWERED. PATIENT AMBULATORY, ESCORTED TO [facility]. ALL BELONGINGS SENT WITH PATIENT.
--- NOTE | 2025-05-10 12:06 | DS ---
Discharge Summary Hospital Course Summary: DATE OF ADMISSION:[05/06/2025] DATE OF DISCHARGE:[05/10/2025] DISPOSITION:[Home] CONDITION:[Medically stable] CONSULTANTS:[Urologist, oncologist] FOLLOW UP APPOINTMENTS:[PCP two to three days. Urologist within 2 to 3 days. 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 CT abdomen/pelvis was performed and showed large heterogenous lobulated soft tissue mass in the mid and lower left kidney. Left hydronephrosis. CT abdomen pelvis repeat one showed no IVC thrombus. Chest CT was negative for PE phrenic nerve palsy heterogenous nodular thyroid. MRI abdomen showed renal cell carcinoma. Bone scan was performed was negative. We also performed ultrasound thyroid was normal. Urologist was consulted and advised that if metastatic workup was negative treatment options recommending include red call left nephrectomy to be performed as soon as possible. Risks and benefits were explained to the patient. Patient possibly might need nephrectomy including possible robotic nephrectomy versus open surgery which was also discussed with the patient and reviewed. Patient is to be discharged follow up outpatient within 2 to 3 days for surgical planning and nephrectomy as soon as possible. Patient was also evaluated by oncologist and as per his recommendation if the patient to have metastatic the sees patient will be started on palliative chemo. If there is no metastatic disease the patient could be sent to surgery for radical nephrectomy. Bone scan was negative no meds. Patient to follow up outpatient with the urologist within 2 to 3 days. Procedure(s): REVIEW OF SYSTEMS CONSTITUTIONAL: Denies fevers, chills, or night sweats. No unintentional weight loss reported. NEUROLOGICAL: Denies headache, amaurosis fugax, motor weakness, sensory deficit, vertigo/spinning sensation, gait abnormalities, or tremors. ENT: No hearing loss, otalgia, otorrhea, rhinitis, rhinorrhea, hoarseness, or sore throat. CARDIOVASCULAR: Denies any exertional angina, dyspnea on exertion, orthopnea, paroxysmal nocturnal dyspnea, palpitations, life-threatening arrhythmias, claudication. PULMONARY: Denies any shortness of breath, cough, phlegm/sputum, hemoptysis, pleuritic chest pain. SLEEP: Denies morning headaches, daytime somnolence or napping. Denies difficulty falling asleep, staying asleep, waking from sleep. Denies knowledge of snoring. GASTROINTESTINAL: Denies any type of dysphagia to either liquids or solids. Denies nausea, vomiting, pyrosis, early satiety, abdominal pain, diarrhea, constipation, or changes in stool consistency or caliber. Denies coffee-ground emesis, hematemesis, hematochezia, or melanotic stools. GENITOURINARY: Denies any flank pain hematuria started on Friday ENDOCRINOLOGIC: Denies polyuria, polydipsia, polyphagia or heat/cold intolerances. HEMATOLOGIC: Denies thrombophilia/previous clots, or coagulopathy/bleeding disorders. ONCOLOGIC: Denies personal history of malignancy. DERMATOLOGIC: Denies rashes or pruritus. PSYCHIATRIC: Denies any suicidal or homicidal ideation. Denies hallucinations. PHYSICAL EXAM GENERAL APPEARANCE: The patient is awake, alert, and oriented, in no acute cardiopulmonary distress. NEUROLOGICAL: Cranial nerves II-XII grossly intact. Motor is 5/5 in bilateral upper and lower extremities proximal to distal. No sensory deficits. HEENT: Face is symmetric. Pupils are equal and reactive. Extraocular movements are intact. NECK: Supple. No JVD. No thyromegaly. No submental, submandibular, pre- /postauricular, occipital or supraclavicular lymphadenopathy. CHEST: Normal chest expansion. No Telemetry. LUNGS: Absence of any rales, rhonchi or any wheezing. CARDIOVASCULAR: Regular. S1 and S2 normal. No appreciable rubs, murmurs or gallops. ABDOMEN: Soft, nondistended. Tenderness to palpation of the left flank with a palpable mass noted : Deferred. No Macias. EXTREMITIES: Non-edematous and not cyanotic. No clubbing. Good capillary refill. SKIN: No skin breakdown. Assessment/Plan: ASSESSMENT: Large heterogenous 9.9 cm left renal mass concerning for renal cell carcinoma, POA Left-sided flank pain with intermittent hematuria, times Friday, POA History of hypertension, POA History of hypertriglyceridemia, POA Home Medications: Active Scripts [Folic Acid/Vitamin B Comp W-C] 1 CAP TAB No Conflict Check, 1 CAP PO DAILY, #60 TAB 0 Refills Prov:[facility] 05/10/25 Famotidine (Famotidine) 20 Mg Tablet, 20 MG PO BID, #60 TAB Prov:[facility] 05/10/25 Reported Medications Gemfibrozil (Gemfibrozil) 600 Mg Tablet, 600 MG PO DAILY, TAB 05/06/25 Valsartan (Valsartan) 320 Mg Tablet, 320 MG PO DAILYDINNER, TAB 05/06/25 Time spent arranging discharge: 31-60 minutes ATTESTATION BY PHYSICIAN I have seen and examined the patient. I reviewed the documentation, medical decision making, and treatment plan as noted by the mid-level provider above. I agree with the findings and plan of care. DEMARIO COMBS MD, [facility] May 10, 2025 12:06
== END 2025-05-10 08:38 | disposition home or self-care (01) | DRG 687 ==
LOC: EDH 10:06 → EDHIP 12:31 → 4AH 14:45
PROVIDERS: ADMIT Internal Medicine; ATTEND Internal Medicine
DX: C64.2 Malignant neoplasm of left kidney, except renal pelvis (principal); N13.30 Unspecified hydronephrosis; E04.2 Nontoxic multinodular goiter; I10 Essential (primary) hypertension; K76.0 Fatty (change of) liver, not elsewhere classified; E78.00 Pure hypercholesterolemia, unspecified; E78.1 Pure hyperglyceridemia; K57.30 Diverticulosis of large intestine without perforation or abscess without bleeding; N28.1 Cyst of kidney, acquired; R31.0 Gross hematuria
CPT/HCPCS: 36415; 71270; 74176; 74178; 74183; 76536; 78306; 80048; 80053; 80076; 81001; 83690; 83735; 84145; 85014; 85018; 85025; 85027; 85610; 85651; 85730; 86140; 86850; 86900; 86901; 99285; A9503; G0378; J1885; J2405; J7030; Q9967